=== PATIENT | female | born 1985 | race Caucasian/White ===

== ENCOUNTER → 2016-10-17 | Outpatient (CLI) | payer BC ==
[2016-10-19 10:56] LABS: HERPES SIMPLEX AB IGG-1 < 0.90 INDEX (< 0.90); HERPES SIMPLEX AB IGG-2 < 0.90 INDEX (< 0.90)
== END | disposition home or self-care (01) ==
LOC: C.LABMFLN 15:03
PROVIDERS: ATTEND Family Medicine
DX: Z20.2 Contact with and (suspected) exposure to infections with a predominantly sexual mode of transmission (principal)

== ENCOUNTER → 2016-11-07 | Outpatient (CLI) | payer BC ==
[2016-11-11 07:06] LABS: CHLAMYDIA TRACH RNA*** NOT DETECTED (NOT DETECTED); GC (NEIS GONORRHOEAE)RNA** NOT DETECTED (NOT DETECTED)
== END | disposition home or self-care (01) ==
LOC: C.LABMFLN 08:02
PROVIDERS: ATTEND Family Medicine
DX: Z00.00 Encounter for general adult medical examination without abnormal findings (principal); Z01.419 Encounter for gynecological examination (general) (routine) without abnormal findings

== ENCOUNTER → 2016-11-07 | Outpatient (CLI) | payer BC | END | disposition home or self-care (01) | LOC: C.PAPS 08:51 | PROVIDERS: ATTEND Family Medicine | DX: Z01.419 Encounter for gynecological examination (general) (routine) without abnormal findings (principal) ==

== ENCOUNTER → 2017-05-30 | Outpatient (CLI) | payer BC ==
[2017-05-30 17:58] LABS: BASO % 0.3 %; BASO ABS # 0.03 K/uL (0-0.2); EOS % 1.8 %; EOS ABS # 0.18 K/uL (0-0.5); HEMATOCRIT 40.2 % (37-47); HEMOGLOBIN 13.9 g/dL (12.0-16.0); IG# 0.02 K/uL (0.00-0.02); LYMPH % 41.9 %; LYMPH ABS # 4.14 K/uL (1.2-3.4); MEAN CELL VOLUME 92.2 fL (80-100); MEAN CORPUSCULAR HEMOGLOBIN 31.9 pg (25-34); MEAN CORPUSCULAR HGB CONC 34.6 g/dl (32-36); MEAN PLATELET VOLUME 10.8 fL (7.4-10.4); MONO % 6.6 %; MONO ABS # 0.65 K/uL (0.11-0.59); NEUT % 49.2 %; NEUT ABS # 4.86 K/uL (1.4-6.5); PLATELET COUNT 309 K/uL (130-400); RED CELL DISTRIBUTION WIDTH CV 12.8 % (11.5-14.5); RED CELL DISTRIBUTION WIDTH SD 43.5 fL (36.4-46.3); WHITE BLOOD COUNT 9.88 K/uL (4.8-10.8)
[2017-05-30 18:15] LABS: ALBUMIN 3.3 gm/dl (3.4-5.0); ALT/SGPT 25 U/L (12-78); AST/SGOT 17 U/L (15-37); BLOOD UREA NITROGEN 15 mg/dl (7-18); CALCIUM 8.8 mg/dl (8.5-10.1); CARBON DIOXIDE 27 mmol/L (21-32); CREATININE 0.82 mg/dl (0.60-1.20); GLUCOSE 77 mg/dl (70-99); SODIUM 135 mmol/L (136-145)
[2017-05-30 18:26] LABS: ALKALINE PHOSPHATASE 44 U/L (45-117); TOTAL PROTEIN 7.6 gm/dl (6.4-8.2)
== END | disposition home or self-care (01) ==
LOC: C.LABMFLN 15:31
PROVIDERS: ATTEND Family Medicine
DX: R00.2 Palpitations (principal)

== ENCOUNTER → 2017-12-21 | Outpatient (CLI) | payer BC ==
[2017-12-25 12:15] LABS: HERPES SIMPLEX AB IGG-1 < 0.90 INDEX (< 0.90); HERPES SIMPLEX AB IGG-2 < 0.90 INDEX (< 0.90)
== END | disposition home or self-care (01) ==
LOC: C.LABMFLN 11:15
PROVIDERS: ATTEND Family Medicine
DX: Z20.2 Contact with and (suspected) exposure to infections with a predominantly sexual mode of transmission (principal)

== ENCOUNTER 2021-07-22 07:40 | Inpatient (IN) ==
[2021-07-22] MEDS ORDERED: OXYTOCIN 30 UNITS/500 ML BAG IV PRN ×2 (08:10→09:55)
[2021-07-22 08:32] LABS: Hematocrit (blood only) 36.5 % (37-47); Hemoglobin 12.3 g/dL (12.0-16.0); Mean Corpuscular Hemoglobin 30.2 pg (25-34); Mean Corpuscular Hgb Conc 33.7 g/dL (32-36); Mean Corpuscular Volume 89.7 fL (80-100); Mean Platelet Volume 10.2 fL (7.4-10.4); Platelet Count 222 K/uL (130-400); RDW Coefficient of Variation 14.3 % (11.5-14.5); RDW Standard Deviation 46.6 fL (36.4-46.3); Red Blood Count 4.07 M/uL (4.2-5.4); White Blood Count 13.59 K/uL (4.8-10.8)
[2021-07-22 08:42] LABS: INR 0.9 (0.9-1.1); Partial Thromboplastin Ratio 0.9; Partial Thromboplastin Time 24.5 Seconds (21.0-31.0); Prothrombin Time 10.1 Seconds (9.0-12.0)
--- NOTE | 2021-07-22 09:05 | History & Physical Report ---
Date of Service July 22, 2021 Assessment & Plan (1) Encounter for induction of labor: Plan: 36-year-old primigravida w/ complicated by chronic hypertension, presenting to L&D at 30.6 WGA for IOL (reason) * GBS+, RI, Rh+: IV penicillin G, 3 mu every 4 hours. * Pulmonary embolism hxstopped heparin on Monday; plan to resume (10,000 units SQ x1 week, then Lovenox). Coag panel labs ordered: wnl. * Admit to L&D * NPO except sips and chips * Pitocin PRN * Pt. open to epidural * Maintenance IVF: Lactated Ringer's at 125 mL * Continuous electronic heart monitoring * Full Code * Anticipate Admission and Anticipated Discharge Date Admission Date: July 22, 2021 History of Present Illness Primary Care Provider: Diamond Aly PA-C Vidal is a 36 y/o female primigravida currently at 38.6 WGA with an OZIEL 07/30/2021 as determined by Ultrasound who is here for induction. Her was complicated by medical history of chronic hypertension, for which she is on medication, hypothyroidism, and blood clots (pulmonary embolism), for which she was also on Lovenox and then heparin (stopped 24 hours prior to scheduled induction, as per guidelines). + Contractions; + movement; no fluid loss; no bloody show. Had regular appointments with OB. Labs: 07/22/2021 Blood type: A+ Antibody screen: Negative H.3 Hct: 36.5% WBC: 13.59 Plt: 222 Rubella: Immune RPR: Nonreactive Gonorrhea: Not detected Chlamydia: Not detected HIV: Negative HbSAg: Negative GBS: Positive Other screens: cff-DNA: Declined CF: Negative SMA: Negative Allergies Allergy/AdvReac Type Severity Reaction Status Date / Time No Known Allergies Allergy Unknown Verified 07/21/21 09:13 Home Medications Medication Instructions Recorded Confirmed Type fluticasone propionate 50 1 sprays INTRANASAL DAILY PRN gm 12/27/18 07/21/21 History mcg/actuation nasal spray,suspension albuterol sulfate 90 mcg/actuation 2 puffs INH Q6H PRN #18 gm 09/11/19 07/21/21 Rx aerosol inhaler famotidine PO DAILY PRN 09/16/20 07/21/21 History labetalol 100 mg tablet 50 mg PO BID tab 09/16/20 07/21/21 History prenat.vits,tin,moz-ydkm-niiba 1 tab PO DAILY 12/04/20 07/21/21 History lansoprazole 15 mg capsule,delayed 15 mg PO DAILY #90 cap 02/18/21 07/21/21 Rx release (Prevacid 24Hr) acetone (urine) test (Ketone Urine #50 ea 03/15/21 07/21/21 Rx Test) blood sugar diagnostic (OneTouch #150 ea 03/15/21 07/21/21 Rx Verio test strips) blood-glucose meter (OneTouch #1 ea 03/15/21 07/21/21 Rx Verio Flex meter) lancets 33 gauge (OneTouch Delica #150 ea 03/15/21 07/21/21 Rx Plus Lancet) aspirin 81 mg tablet,delayed 81 mg PO DAILY 05/21/21 07/21/21 History release (Adult Aspirin Regimen) levothyroxine 25 mcg capsule 25 mcg PO DAILY 06/04/21 07/21/21 History Patient History Medical History Abnormal CT of brain Acid reflux disease Antiphospholipid syndrome Anxiety Atypical chest pain Chronic sinusitis Deviated septum History of chlamydia infection Hypertension OCD (obsessive compulsive disorder) Pulmonary embolism Vulvar lesion Surgical History Chorioretinal scar after retinal detachment surgery H/O arthroscopic knee surgery History of mandibular surgery S/P sinus surgery Family History Mother Asthma Father Hypertension Grandfather (Maternal) Liver cancer Viral hepatitis C Grandmother (Paternal) Myocardial infarction Denies family history of Ovarian cancer Prostate cancer Breast cancer Colorectal cancer Social History (Updated 12/04/20 @ 08:43 by Maddie Mascorro) Smoking Status: Never smoker Second Hand Exposure: No; Do You Dip or Chew Tobacco: No; Tobacco Cessation Education Requested by Patient: No Hx Alcohol Use: No Hx Substance Use: No Preferred Language: Turkish Communication Ability: Effective Building Carpenter Required: No Beliefs That Will Affect Care: None marital status: marital status details: Levar (39) [phone] Current Living Situation: Spouse Current Living Situation Comment: lives with spouse, 1 dog. current occupational status: employed current occupation: [employer]- Other Information That Helps Us Care for You: No Feels Safe at Home: Yes Safety Concerns: Feels Safe At This Time Assistive Devices: None Review of Systems All systems reviewed & are unremarkable except as noted in HPI & below Physical Exam Physical Exam: General: Alert, oriented. No acute distress. Cardiac: Regular rate and rhythm, no murmurs/rubs/gallops. Respiratory: Clear to auscultation bilaterally a/p, no wheezes/rales/rhonchi. No increased work of breathing. Symmetrical chest rise. No respiratory distress. Pelvic: Dilation 1 cm; Effacement 90%; Station -[address] Wyatt Lower Extremities: No lower extremity edema or swelling. No deep calf pain. Moses's negative bilaterally Baseline: 110 bpm Variability: moderate Accelerations:3+ per 20 minutes Decelerations: none Results & Data ([facility]) Vital Signs (Past 12 Hours) Vital Signs Temp Pulse Resp BP 07/22/21 08:12 86 137/84 07/22/21 08:10 36.6 C 22 07/22/21 07:51 103 H 148/85 H Supervising Physician Co-Signing Physician Notes Resident Physician Supervision Note: I interviewed and examined the patient. Discussed with Dr. Kerns and agree with findings and plan as documented in the note. Any exceptions or clarifications are listed here: 36yo @ 38 6/, IOL for cHTN. Also has GDMA1, h/o PE, GBS+. Last dose of heparin Monday night. Coags ordered with admission labs. Laboy bulb placed, tolerated well and will start pitocin. OK for epidural when she desires. Documented By: Ritu Wyatt DO Resident Activity Tracking Resident Involvement: Resident Care Provided Care Provided: OB Delivery
[2021-07-22] MEDS ORDERED: PENICILLIN POTASSIUM MU IV ONE (09:43)
[2021-07-22] MEDS ORDERED: DEXTROSE IV ONE (09:43)
[2021-07-22] MEDS ORDERED: PENICILLIN G POTASSIUM 2.5 MU in DEXTROSE 5% 100 ML IV SCH (09:45)
[2021-07-22] MEDS: LACTATED RINGER'S 1,000 ML IV PRN ×4 (09:45→20:57)
[2021-07-22] MEDS ORDERED: PENICILLIN G POTASSIUM 6 MU in DEXTROSE 5% 250 ML IV STA (09:55)
[2021-07-22] MEDS ORDERED: OXYTOCIN 20 UNITS in LACTATED RINGER'S 1,000 ML IV SCH (10:00)
[2021-07-22] MEDS ORDERED: BUTORPHANOL TARTRATE 1 MG/ML VIAL IV PRN (10:28)
[2021-07-22] MEDS ORDERED: BUPIVACAINE 0.25% 30 ML VIAL ONE (14:03)
[2021-07-22] MEDS ORDERED: SODIUM CHLORIDE 0.9% INJ 10 ML VIAL ONE (14:03)
[2021-07-22] MEDS ORDERED: ePHEDrine sulfate 50 MG/ML AMP ONE (14:03)
[2021-07-22] MEDS ORDERED: fentaNYL citrate 100 MCG/2 ML VIAL ONE ×2 (14:03→23:33)
[2021-07-22] MEDS ORDERED: fentaNYL 2MCG/ML ROPIVACAINE 1.25MG/ML 100 ML BAG EPI ONE (14:04)
[2021-07-22] MEDS: PENICILLIN G POTASSIUM 3 MU in DEXTROSE 5% 100 ML IV PRN ×2 (14:53→19:05)
--- NOTE | 2021-07-22 14:58 | Anesthesiology Consultation ---
Date of Service July 22, 2021 Assessment & Plan Chart Review Chart Review: Acceptable Risk for Labor Epidural Consults Requested none History Height/Weight Height: 5 ft 4 in Weight: 90.265 kg Allergies Allergy/AdvReac Type Severity Reaction Status Date / Time No Known Allergies Allergy Unknown Verified 07/21/21 09:13 Medications Home Medications Medication Instructions Recorded Confirmed Last Taken fluticasone propionate 50 1 sprays INTRANASAL DAILY PRN gm 12/27/18 07/21/21 Unknown mcg/actuation nasal spray,suspension albuterol sulfate 90 mcg/actuation 2 puffs INH Q6H PRN #18 gm 09/11/19 07/21/21 Unknown aerosol inhaler famotidine PO DAILY PRN 09/16/20 07/21/21 Unknown labetalol 100 mg tablet 50 mg PO BID tab 09/16/20 07/21/21 Unknown prenat.vits,tin,rvl-ekgr-vxbia 1 tab PO DAILY 12/04/20 07/21/21 Unknown lansoprazole 15 mg capsule,delayed 15 mg PO DAILY #90 cap 02/18/21 07/21/21 Unknown release (Prevacid 24Hr) acetone (urine) test (Ketone Urine #50 ea 03/15/21 07/21/21 Unknown Test) blood sugar diagnostic (OneTouch #150 ea 03/15/21 07/21/21 Unknown Verio test strips) blood-glucose meter (OneTouch #1 ea 03/15/21 07/21/21 Unknown Verio Flex meter) lancets 33 gauge (OneTouch Delica #150 ea 03/15/21 07/21/21 Unknown Plus Lancet) aspirin 81 mg tablet,delayed 81 mg PO DAILY 05/21/21 07/21/21 Unknown release (Adult Aspirin Regimen) levothyroxine 25 mcg capsule 25 mcg PO DAILY 06/04/21 07/21/21 Unknown Active Medications Generic Name Dose Route Start Last Admin Trade Name Freq PRN Reason Stop Dose Admin Butorphanol Tartrate 1 mg 07/22/21 10:28 07/22/21 11:09 Butorphanol Tartrate 1 Mg/Ml Vial IV 08/21/21 10:27 1 mg Q2HWA PRN Administration Pain Lactated Ringer's 1,000 mls @ 125 mls/hr 07/22/21 08:10 07/22/21 13:47 Lr IV 07/24/21 08:09 999 mls/hr .Q8H PRN Administration L&D Protocol Protocol Oxytocin 30 units in 500 mls @ 11 mls/hr 07/22/21 09:55 07/22/21 14:00 Pitocin IV 08/21/21 09:54 0.66 units/hr .Q24H PRN 11 mls/hr Labor Induction/Augmentation Titration Protocol 0.66 UNITS/HR Penicillin G Potassium 3 mu/ 106 mls @ 100 mls/hr 07/22/21 14:00 07/22/21 14:53 Dextrose IV 08/01/21 13:59 100 mls/hr Q4H PRN Administration GBS(+) Until Delivery Past Medical History Medical History (Updated 07/22/21 @ 13:29 by Yony Kerns MD) Abnormal CT of brain Acid reflux disease Antiphospholipid syndrome Anxiety Atypical chest pain Chronic sinusitis Deviated septum History of chlamydia infection Hypertension OCD (obsessive compulsive disorder) Pulmonary embolism Vulvar lesion Past Family History Family History Mother Asthma Father Hypertension Grandfather (Maternal) Liver cancer Viral hepatitis C Grandmother (Paternal) Myocardial infarction Denies family history of Ovarian cancer Prostate cancer Breast cancer Colorectal cancer Past Surgical History Surgical History (Updated 09/12/19 @ 08:25 by Diamond Mobley MD) Chorioretinal scar after retinal detachment surgery H/O arthroscopic knee surgery History of mandibular surgery S/P sinus surgery Social History Smoking Status: Never smoker Do You Dip or Chew Tobacco: No Hx Alcohol Use: No Hx Substance Use: No substance use type: does not use Physical Exam Vital Signs Last Vital Signs Temp 36.4 C L 07/22/21 12:01 Pulse 70 07/22/21 14:56 Resp 18 07/22/21 12:01 BP 140/81 07/22/21 14:55 Pulse Ox 99 07/22/21 14:56 Testing Laboratory Results 07/22/21 08:19 PT 10.1 Seconds (9.0-12.0) 07/22/21 08:23 INR 0.9 (0.9-1.1) 07/22/21 08:23 APTT 24.5 Seconds (21.0-31.0) 07/22/21 08:23 07/22/21 09:03 POC Glucose 85
[2021-07-22] MEDS ORDERED: ePHEDrine sulfate 50 MG/ML AMP IV PRN (15:00)
[2021-07-22] MEDS ORDERED: NALOXONE HCL 0.4 MG/1 ML VIAL/CARP IV PRN (15:00)
[2021-07-22] MEDS ORDERED: NALBUPHINE HCL INJ 10 MG/ML AMP IV PRN (15:00)
[2021-07-22] MEDS ORDERED: NALOXONE HCL 1 MG in SODIUM CHLORIDE 0.9% 1000ML 1,000 ML IV PRN (15:00)
[2021-07-22] MEDS ORDERED: fentaNYL 2MCG/ML ROPIVACAINE 1.25MG/ML 100 ML BAG EPI PRN (15:00)
[2021-07-22] MEDS ORDERED: diphenhydrAMINE 50 MG/ML VIAL IV PRN (15:00)
--- NOTE | 2021-07-22 15:39 | Labor Progress Brief Note ---
Date of Service July 22, 2021 Subjective Comfortable with epidural. FHT Cat 1 [place] Q 2-3 SVE 5/80/-3 AROM clear fluid. Continue labor. Assessment & Plan Admission and Anticipated Discharge Date Admission Date: July 22, 2021 Results & Data ([facility]) Vital Signs (Past 12 Hours) Vital Signs Temp Pulse Resp BP Pulse Ox 07/22/21 15:36 95 H 100 07/22/21 15:31 80 100 07/22/21 15:26 78 133/75 100 07/22/21 15:21 83 100 07/22/21 15:16 74 100 07/22/21 15:11 75 100 07/22/21 15:10 70 135/77 07/22/21 15:06 85 100 07/22/21 15:01 67 99 07/22/21 14:56 70 99 07/22/21 14:55 91 H 140/81 07/22/21 14:51 73 99 07/22/21 14:50 76 139/83 07/22/21 14:48 77 138/87 07/22/21 14:46 36.4 C L 79 142/87 H 99 07/22/21 14:44 82 146/92 H 07/22/21 14:42 81 143/92 H 07/22/21 14:41 82 99 07/22/21 14:40 74 164/93 H 07/22/21 14:36 78 100 07/22/21 14:35 100 H 165/88 H 07/22/21 14:32 72 160/87 H 07/22/21 14:31 74 100 07/22/21 14:26 80 158/88 H 100 07/22/21 14:22 66 158/82 H 07/22/21 14:21 69 100 07/22/21 14:16 69 178/85 H 100 07/22/21 14:11 77 139/81 07/22/21 13:01 69 133/82 07/22/21 12:01 36.4 C L 65 18 135/80 07/22/21 11:16 70 132/75 07/22/21 10:24 81 134/84 07/22/21 09:59 78 137/86 07/22/21 09:06 87 148/90 H 07/22/21 08:12 86 137/84 07/22/21 08:10 36.6 C 07/22/21 07:51 103 H 148/85 H Coding Level of Care Code None
[2021-07-22] MEDS ORDERED: ONDANSETRON INJ 2 MG/ML 2 ML VIAL IV PRN (18:32)
--- NOTE | 2021-07-22 19:47 | Labor Progress Brief Note ---
Date of Service July 22, 2021 Subjective Comfortable with epidural. FHT Cat 1 with early decels [place] Q 2-3 min SVE 7cm/0 station per RN exam Assessment & Plan Admission and Anticipated Discharge Date Admission Date: July 22, 2021 Results & Data ([facility]) Vital Signs (Past 12 Hours) Vital Signs Temp Pulse Resp BP Pulse Ox 07/22/21 19:41 59 L 100 07/22/21 19:40 62 140/67 07/22/21 19:36 122 H 99 07/22/21 19:31 75 100 07/22/21 19:30 18 07/22/21 19:26 88 91 07/22/21 19:25 71 130/69 07/22/21 19:21 81 100 07/22/21 19:20 101 H 92 07/22/21 19:16 96 H 100 07/22/21 19:11 85 100 07/22/21 19:10 36.8 C 77 18 129/67 07/22/21 19:06 83 100 07/22/21 19:01 73 100 07/22/21 19:00 18 07/22/21 18:56 89 132/71 99 07/22/21 18:51 66 100 07/22/21 18:46 80 100 07/22/21 18:41 80 131/67 100 07/22/21 18:36 80 100 07/22/21 18:31 79 100 07/22/21 18:26 83 100 07/22/21 18:25 114 H 117/73 07/22/21 18:21 98 H 100 07/22/21 18:16 102 H 100 07/22/21 18:11 67 142/77 H 100 07/22/21 18:06 62 100 07/22/21 18:01 67 100 07/22/21 17:56 82 100 07/22/21 17:51 66 100 07/22/21 17:46 75 100 07/22/21 17:41 69 100 07/22/21 17:40 82 135/77 07/22/21 17:36 83 100 07/22/21 17:31 89 100 07/22/21 17:26 83 100 07/22/21 17:25 88 116/77 07/22/21 17:21 63 100 07/22/21 17:16 83 100 07/22/21 17:11 65 112/85 100 07/22/21 17:06 96 H 100 07/22/21 17:01 115 H 100 07/22/21 17:00 18 07/22/21 16:56 67 100 07/22/21 16:55 59 L 146/70 H 07/22/21 16:51 65 100 07/22/21 16:46 63 100 07/22/21 16:42 60 134/76 07/22/21 16:41 59 L 100 07/22/21 16:36 71 100 07/22/21 16:31 70 100 07/22/21 16:26 63 100 07/22/21 16:25 64 132/73 07/22/21 16:21 67 100 07/22/21 16:16 60 100 07/22/21 16:11 61 144/79 H 100 07/22/21 16:06 63 100 07/22/21 16:01 59 L 100 07/22/21 16:00 18 07/22/21 15:56 65 100 07/22/21 15:55 58 L 134/69 07/22/21 15:51 61 100 07/22/21 15:46 75 100 07/22/21 15:42 36.7 C 18 07/22/21 15:41 76 100 07/22/21 15:40 78 130/84 07/22/21 15:36 95 H 100 07/22/21 15:31 80 100 07/22/21 15:30 18 07/22/21 15:26 78 133/75 100 07/22/21 15:21 83 100 07/22/21 15:16 74 100 07/22/21 15:11 75 100 07/22/21 15:10 70 135/77 07/22/21 15:06 85 100 07/22/21 15:01 67 99 07/22/21 14:56 70 99 07/22/21 14:55 91 H 140/81 07/22/21 14:51 73 99 07/22/21 14:50 76 139/83 07/22/21 14:48 77 138/87 07/22/21 14:46 36.4 C L 79 142/87 H 99 07/22/21 14:44 82 146/92 H 07/22/21 14:42 81 143/92 H 07/22/21 14:41 82 99 07/22/21 14:40 74 164/93 H 07/22/21 14:36 78 100 07/22/21 14:35 100 H 165/88 H 07/22/21 14:32 72 160/87 H 07/22/21 14:31 74 100 07/22/21 14:26 80 158/88 H 100 07/22/21 14:22 66 158/82 H 07/22/21 14:21 69 100 07/22/21 14:16 69 178/85 H 100 07/22/21 14:11 77 139/81 07/22/21 13:01 69 133/82 07/22/21 12:01 36.4 C L 65 18 135/80 07/22/21 11:16 70 132/75 07/22/21 10:24 81 134/84 07/22/21 09:59 78 137/86 07/22/21 09:06 87 148/90 H 07/22/21 08:12 86 137/84 07/22/21 08:10 36.6 C 22 07/22/21 07:51 103 H 148/85 H Coding Level of Care Code None
[2021-07-22] MEDS: LABETALOL HCL 100 MG TAB PO SCH (20:56)
--- NOTE | 2021-07-22 21:22 | Labor Progress Brief Note ---
Date of Service July 22, 2021 Subjective FHT with Cat 3 tracing - late decelerations, not responsive to repositioning. Will stop pitocin, give fluids bolus and allow baby to recover. Assessment & Plan Admission and Anticipated Discharge Date Admission Date: July 22, 2021 Results & Data ([facility]) Vital Signs (Past 12 Hours) Vital Signs Temp Pulse Resp BP Pulse Ox 07/22/21 21:16 78 97 07/22/21 21:11 82 127/78 99 07/22/21 21:06 82 100 07/22/21 21:01 94 H 100 07/22/21 21:00 36.7 C 18 07/22/21 20:56 68 100 07/22/21 20:55 66 120/62 07/22/21 20:51 69 99 07/22/21 20:46 84 99 07/22/21 20:41 74 99 07/22/21 20:40 75 133/83 07/22/21 20:36 80 99 07/22/21 20:31 83 99 07/22/21 20:30 20 07/22/21 20:26 72 98 07/22/21 20:25 72 134/88 07/22/21 20:21 84 100 07/22/21 20:16 89 100 07/22/21 20:11 72 141/78 H 100 07/22/21 20:06 70 99 07/22/21 20:01 77 100 07/22/21 20:00 20 07/22/21 19:56 100 H 100 07/22/21 19:55 69 133/79 07/22/21 19:51 71 100 07/22/21 19:46 74 99 07/22/21 19:41 59 L 100 07/22/21 19:40 62 140/67 07/22/21 19:36 122 H 99 07/22/21 19:31 75 100 07/22/21 19:30 18 07/22/21 19:26 88 91 07/22/21 19:25 71 130/69 07/22/21 19:21 81 100 07/22/21 19:20 101 H 92 07/22/21 19:16 96 H 100 07/22/21 19:11 85 100 07/22/21 19:10 36.8 C 77 18 129/67 07/22/21 19:06 83 100 07/22/21 19:01 73 100 07/22/21 19:00 18 07/22/21 18:56 89 132/71 99 07/22/21 18:51 66 100 07/22/21 18:46 80 100 07/22/21 18:41 80 131/67 100 07/22/21 18:36 80 100 07/22/21 18:31 79 100 07/22/21 18:26 83 100 07/22/21 18:25 114 H 117/73 07/22/21 18:21 98 H 100 07/22/21 18:16 102 H 100 07/22/21 18:11 67 142/77 H 100 07/22/21 18:06 62 100 07/22/21 18:01 67 100 07/22/21 17:56 82 100 07/22/21 17:51 66 100 07/22/21 17:46 75 100 07/22/21 17:41 69 100 07/22/21 17:40 82 135/77 07/22/21 17:36 83 100 07/22/21 17:31 89 100 07/22/21 17:26 83 100 07/22/21 17:25 88 116/77 07/22/21 17:21 63 100 07/22/21 17:16 83 100 07/22/21 17:11 65 112/85 100 07/22/21 17:06 96 H 100 07/22/21 17:01 115 H 100 07/22/21 17:00 18 07/22/21 16:56 67 100 07/22/21 16:55 59 L 146/70 H 07/22/21 16:51 65 100 22 16:46 63 100 22 16:42 60 134/76 22 16:41 59 L 100 22 16:36 71 100 22 16:31 70 100 07/22/21 16:26 63 100 22 16:25 64 132/73 22 16:21 67 100 22 16:16 60 100 07/22/21 16:11 61 144/79 H 100 1722 16:06 63 100 07/22/21 16:01 59 L 100 07/22/21 16:00 18 07/22/21 15:56 65 100 07/22/21 15:55 58 L 134/69 07/22/21 15:51 61 100 07/22/21 15:46 75 100 07/22/21 15:42 36.7 C 18 07/22/21 15:41 76 100 07/22/21 15:40 78 130/84 07/22/21 15:36 95 H 100 07/22/21 15:31 80 100 07/22/21 15:30 18 07/22/21 15:26 78 133/75 100 07/22/21 15:21 83 100 07/22/21 15:16 74 100 07/22/21 15:11 75 100 07/22/21 15:10 70 135/77 07/22/21 15:06 85 100 07/22/21 15:01 67 99 07/22/21 14:56 70 99 07/22/21 14:55 91 H 140/81 07/22/21 14:51 73 99 07/22/21 14:50 76 139/83 07/22/21 14:48 77 138/87 07/22/21 14:46 36.4 C L 79 142/87 H 99 07/22/21 14:44 82 146/92 H 07/22/21 14:42 81 143/92 H 07/22/21 14:41 82 99 07/22/21 14:40 74 164/93 H 07/22/21 14:36 78 100 07/22/21 14:35 100 H 165/88 H 07/22/21 14:32 72 160/87 H 07/22/21 14:31 74 100 07/22/21 14:26 80 158/88 H 100 07/22/21 14:22 66 158/82 H 07/22/21 14:21 69 100 07/22/21 14:16 69 178/85 H 100 07/22/21 14:11 77 139/81 07/22/21 13:01 69 133/82 07/22/21 12:01 36.4 C L 65 18 135/80 07/22/21 11:16 70 132/75 07/22/21 10:24 81 134/84 07/22/21 09:59 78 137/86 Coding Level of Care Code None
--- NOTE | 2021-07-22 22:51 | Labor Progress Brief Note ---
Date of Service July 22, 2021 Subjective After stopping pitocin for Cat 3 tracing, FHT have improved to cat 1 with accels. Restarted pitocin. Discussed with patient that we will need to closely monitor - if we begin to see worsening FHT again, may need to deliver by . Assessment & Plan Admission and Anticipated Discharge Date Admission Date: July 22, 2021 Results & Data ([facility]) Vital Signs (Past 12 Hours) Vital Signs Temp Pulse Resp BP Pulse Ox 07/22/21 22:46 71 98 07/22/21 22:41 69 99 07/22/21 22:40 73 126/60 07/22/21 22:36 70 98 07/22/21 22:31 69 98 07/22/21 22:30 18 07/22/21 22:26 73 99 07/22/21 22:25 68 129/57 L 07/22/21 22:21 70 99 07/22/21 22:16 69 98 07/22/21 22:11 77 99 07/22/21 22:10 76 135/64 07/22/21 22:06 73 100 07/22/21 22:01 81 100 07/22/21 22:00 18 07/22/21 21:56 69 100 07/22/21 21:55 68 121/60 07/22/21 21:51 67 100 07/22/21 21:46 68 100 07/22/21 21:41 68 100 07/22/21 21:40 67 124/57 L 07/22/21 21:36 79 100 07/22/21 21:31 82 99 07/22/21 21:30 20 07/22/21 21:26 76 139/75 99 07/22/21 21:21 84 99 07/22/21 21:16 78 97 07/22/21 21:11 82 127/78 99 07/22/21 21:06 82 100 07/22/21 21:01 94 H 100 07/22/21 21:00 36.7 C 18 07/22/21 20:56 68 100 07/22/21 20:55 66 120/62 07/22/21 20:51 69 99 07/22/21 20:46 84 99 07/22/21 20:41 74 99 07/22/21 20:40 75 133/83 07/22/21 20:36 80 99 07/22/21 20:31 83 99 07/22/21 20:30 20 07/22/21 20:26 72 98 07/22/21 20:25 72 134/88 07/22/21 20:21 84 100 07/22/21 20:16 89 100 07/22/21 20:11 72 141/78 H 100 07/22/21 20:06 70 99 07/22/21 20:01 77 100 07/22/21 20:00 20 07/22/21 19:56 100 H 100 07/22/21 19:55 69 133/79 07/22/21 19:51 71 100 07/22/21 19:46 74 99 07/22/21 19:41 59 L 100 07/22/21 19:40 62 140/67 07/22/21 19:36 122 H 99 07/22/21 19:31 75 100 07/22/21 19:30 18 07/22/21 19:26 88 91 07/22/21 19:25 71 130/69 07/22/21 19:21 81 100 07/22/21 19:20 101 H 92 07/22/21 19:16 96 H 100 07/22/21 19:11 85 100 07/22/21 19:10 36.8 C 77 18 129/67 07/22/21 19:06 83 100 07/22/21 19:01 73 100 07/22/21 19:00 18 07/22/21 18:56 89 132/71 99 07/22/21 18:51 66 100 07/22/21 18:46 80 100 07/22/21 18:41 80 131/67 100 07/22/21 18:36 80 100 07/22/21 18:31 79 100 07/22/21 18:26 83 100 07/22/21 18:25 114 H 117/73 07/22/21 18:21 98 H 100 07/22/21 18:16 102 H 100 07/22/21 18:11 67 142/77 H 100 07/22/21 18:06 62 100 07/22/21 18:01 67 100 07/22/21 17:56 82 100 07/22/21 17:51 66 100 07/22/21 17:46 75 100 07/22/21 17:41 69 100 07/22/21 17:40 82 135/77 07/22/21 17:36 83 100 07/22/21 17:31 89 100 07/22/21 17:26 83 100 07/22/21 17:25 88 116/77 07/22/21 17:21 63 100 07/22/21 17:16 83 100 07/22/21 17:11 65 112/85 100 07/22/21 17:06 96 H 100 07/22/21 17:01 115 H 100 07/22/21 17:00 18 07/22/21 16:56 67 100 07/22/21 16:55 59 L 146/70 H 07/22/21 16:51 65 100 07/22/21 16:46 63 100 07/22/21 16:42 60 134/76 07/22/21 16:41 59 L 100 07/22/21 16:36 71 100 07/22/21 16:31 70 100 07/22/21 16:26 63 100 07/22/21 16:25 64 132/73 07/22/21 16:21 67 100 07/22/21 16:16 60 100 07/22/21 16:11 61 144/79 H 100 07/22/21 16:06 63 100 07/22/21 16:01 59 L 100 07/22/21 16:00 18 07/22/21 15:56 65 100 07/22/21 15:55 58 L 134/69 07/22/21 15:51 61 100 07/22/21 15:46 75 100 07/22/21 15:42 36.7 C 18 07/22/21 15:41 76 100 07/22/21 15:40 78 130/84 07/22/21 15:36 95 H 100 07/22/21 15:31 80 100 07/22/21 15:30 18 07/22/21 15:26 78 133/75 100 07/22/21 15:21 83 100 07/22/21 15:16 74 100 07/22/21 15:11 75 100 07/22/21 15:10 70 135/77 07/22/21 15:06 85 100 07/22/21 15:01 67 99 07/22/21 14:56 70 99 07/22/21 14:55 91 H 140/81 07/22/21 14:51 73 99 03/17/22 14:50 76 139/83 07/22/21 14:48 77 138/87 07/22/21 14:46 36.4 C L 79 142/87 H 99 07/22/21 14:44 82 146/92 H 07/22/21 14:42 81 143/92 H 07/22/21 14:41 82 99 07/22/21 14:40 74 164/93 H 07/22/21 14:36 78 100 07/22/21 14:35 100 H 165/88 H 07/22/21 14:32 72 160/87 H 07/22/21 14:31 74 100 07/22/21 14:26 80 158/88 H 100 07/22/21 14:22 66 158/82 H 07/22/21 14:21 69 100 07/22/21 14:16 69 178/85 H 100 07/22/21 14:11 77 139/81 07/22/21 13:01 69 133/82 07/22/21 12:01 36.4 C L 65 18 135/80 07/22/21 11:16 70 132/75 Coding Level of Care Code None
[2021-07-22] MEDS ORDERED: CITRIC ACID/SODIUM CITRATE 15 ML UDC PO STA (23:20)
[2021-07-22] MEDS ORDERED: ceFAZolin 2000MG 2,000 MG/15 ML SYR IV STA (23:20)
--- NOTE | 2021-07-22 23:21 | History & Physical Bridge Note ---
Date of Service July 22, 2021 History & Physical Bridge Note I have examined the patient, reviewed the History & Physical and in the interval since the performance of the History & Physical I have noted the following changes of clinical significance: Patient restarted pitocin, pit at 3. She is having irreg ctx, however with >50% of ctx she is having late decelerations. Cervix exam is still 7-8cm, 0 station. Discussed with patient that would recommend delivery by due to the nonreassuring heart tracing. She is agreeable. Informed consent discussed.
[2021-07-22] MEDS ORDERED: LACTATED RINGER'S 1,000 ML IV SCH (23:30)
[2021-07-23] MEDS ORDERED: OXYTOCIN 10 UNITS/ML 10ML VIAL ONE (00:11)
[2021-07-23] MEDS ORDERED: LIDOCAINE 2%/EPINEPHRINE 1:200,000 20 ML SDV ONE (00:11)
[2021-07-23] MEDS ORDERED: MoRPHine SULFATE PF 1 MG/ML 10 ML AMP/VIAL ONE (00:22)
[2021-07-23] MEDS ORDERED: ONDANSETRON INJ 2 MG/ML 2 ML VIAL ONE (00:29)
[2021-07-23] MEDS ORDERED: HYDROmorphone INJ 0.5 MG/0.5 ML SYR IV PRN (00:40)
[2021-07-23] MEDS ORDERED: PROMETHAZINE HCL 12.5 MG in SODIUM CHLORIDE 0.9% 50 ML IV PRN (00:40)
[2021-07-23] MEDS ORDERED: METOCLOPRAMIDE HCL 10 MG in SODIUM CHLORIDE 0.9% 50 ML IV PRN (00:40)
[2021-07-23] MEDS ORDERED: ePHEDrine sulfate 50 MG/ML AMP IV PRN (00:40)
[2021-07-23] MEDS ORDERED: NALOXONE HCL 0.4 MG/1 ML VIAL/CARP IV PRN (00:40)
[2021-07-23] MEDS ORDERED: ONDANSETRON INJ 2 MG/ML 2 ML VIAL IV PRN ×2 (00:40→18:40)
[2021-07-23] MEDS ORDERED: NALOXONE HCL 0.08 MG in SYRINGE 1.8 ML IV PRN (00:40)
[2021-07-23] MEDS ORDERED: NALOXONE HCL 1 MG in SODIUM CHLORIDE 0.9% 1000ML 1,000 ML IV PRN (00:40)
[2021-07-23] MEDS ORDERED: MoRPHine SULFATE PF 1 MG/ML 10 ML AMP/VIAL INT SPINAL ONE (00:40)
[2021-07-23] MEDS ORDERED: LACTATED RINGER'S 500 ML IV PRN (00:40)
[2021-07-23] MEDS ORDERED: HYDROmorphone INJ 2 MG/ML SYR/VIAL IV PRN (00:43)
[2021-07-23] MEDS ORDERED: KETOROLAC 30 MG/ML VIAL IV PRN ×2 (00:43→18:40)
[2021-07-23] MEDS ORDERED: ACETAMINOPHEN 1,000 MG/100 ML VIAL IV STA (00:43)
[2021-07-23] MEDS ORDERED: MoRPHine SULFATE 10 MG/ML CARP/VIAL IV PRN (00:43)
[2021-07-23] MEDS ORDERED: MEPERIDINE HCL 25 MG/ML CARP/VIAL IV PRN (00:43)
[2021-07-23] MEDS ORDERED: SODIUM CHLORIDE 0.9% 1000ML 1,000 ML IV SCH (00:45)
[2021-07-23] MEDS ORDERED: DC INTRASPINAL MORPHINE SCH (00:45)
[2021-07-23] MEDS ORDERED: NO NARCOTICS OR SEDATIVES SCH (00:45)
[2021-07-23] MEDS ORDERED: PHENYLEPHRINE 100MCG/ML 5ML SYR ONE (00:47)
[2021-07-23] MEDS ORDERED: fentaNYL citrate 100 MCG/2 ML VIAL ONE (00:50)
--- NOTE | 2021-07-23 01:29 | Anesthesia Procedure Note ---
Date of Service July 23, 2021 Anesthesia Post Epidural Note Vital Signs Vital Signs: Temp Pulse Resp BP Pulse Ox 36.9 C 86 18 133/77 99 07/22/21 23:05 07/23/21 01:24 07/22/21 23:30 07/23/21 01:24 07/22/21 23:21 Pain Intensity Anterior Abdomen: Pain Intensity: 0 Notes Mental Status: alert / awake / arousable Nausea / Vomiting: adequately controlled Pain: adequately controlled Airway Patency, RR, SpO2: stable & adequate BP & HR: stable & adequate Hydration State: stable & adequate Neuraxial Anesthesia: was administered and sensory block is resolving Anesthetic Complications: no major complications apparent and Pt Satisfied with anesthetic care Epidural: Removed without complications and With tip intact
[2021-07-23] MEDS ORDERED: HYDROCORTISONE ACETATE 25 MG SUPP PR PRN (01:32)
[2021-07-23] MEDS ORDERED: MAGNESIUM HYDROXIDE SUSP 30 ML UDC PO PRN (01:32)
[2021-07-23] MEDS ORDERED: DIPHTHERIA/TETANUS/PERTUSSIS 0.5 ML SYR/VIAL IM ONE (01:32)
[2021-07-23] MEDS ORDERED: BENZOCAINE 20% AER SPR 82.5 GM CAN EXT PRN (01:32)
[2021-07-23] MEDS ORDERED: SENNA 8.6 MG TAB PO PRN (01:32)
[2021-07-23] MEDS ORDERED: IBUPROFEN 600 MG TAB PO PRN (01:32)
[2021-07-23] MEDS: KETOROLAC 30 MG/ML VIAL IV PRN ×2 (01:34→11:52)
--- NOTE | 2021-07-23 01:37 | Operative Report ---
PG Post Operative Report Pre & Post Diagnosis Operation Date: 07/22/21 23:15 Pre-Op Diagnosis: nonreassuring heart tracing Post-Op Diagnosis: nonreassuring heart tracing I identified the patient and participated in the time-out.: Yes Procedure Operation Date: 07/22/21 23:15 Actual Procedures Primary low transverse Section in [facility] @ 0016 - Ritu Wyatt DO Surgeon Ritu Wyatt, Infectious Waste Technician Irineo Robb RN Estimated Blood Loss 600 Findings Consistent with Post-Op Diagnosis Normal uterus, tubes, ovaries. Viable male , Apgars 8/8. Weight pending, please see nursery report. Specimens placenta, cord blood, cord gas Drains alex pink tinge yellow - was pink tinged prior to start of case Anesthesia Type Labor Epidural Complications none Disposition Accompanied Patient To Recovery: No Disposition: L&D Indications 36yo @ 39 0/7, undergoing IOL for cHTN with pitocin. Began to experience l ate decelerations, initially responsive to resuscitative measures, however then recurrent late decels returned as soon as pitocin was restarted. At this point, cervix still 7cm and therefore I recommended delivery via section. Description of Procedure The patient was seen in her labor and delivery room, risks benefits and alternatives to surgery were reviewed. Informed consent obtained. Questions were answered. She was taken to the operating room, epidural anesthesia was redosed. She was then prepared and draped in the usual sterile fashion in the supine position with a leftward tilt. Timeout was confirmed. A Pfannenstiel skin incision was made with a scalpel, and carried through to the underlying layer of fascia. Fascia was nicked at midline, and this incision was extended bilaterally. The superior aspect of the fascial incision was grasped with Christine clamps x2, elevated off the underlying rectus abdominis muscles, and dissected sharply and bluntly. In similar fashion, the inferior aspect of the fascial incision was dissected. The rectus abdominis muscles were , and the peritoneum was entered bluntly digitally. This was extended bilaterally. The bladder flap was taken down carefully using Metzenbaum scissors. Using a new scalpel, a low transverse uterine incision was created. Clear amniotic fluid noted. The infant was delivered from a cephalic presentation. The head delivered, followed by shoulders and body. Nuchal cord x 1 reduced. Spontaneous cry on the field. The cord was doubly clamped and cut, and the was handed off to the waiting professor of english. A segment was retained for cord gases. Cord blood was obtained. The placenta was delivered spontaneously intact. The uterus was e xteriorized, and cleared of all clots and debris. The hysterotomy incision was reapproximated using 0 Vicryl in a running locked stitch. A second layer of the same suture was used to imbricate the incision. Posterior uterus was evaluated and normal. The uterus was returned to the abdomen, and gutters were cleared of clots and debris. 2-0 vicryl was used in figure-of eight stitches at the hysterotomy to obtain excellent hemostasis. Noe powder was applied to all raw edges to ensure continuing hemostasis. Excellent hemostasis was observed. The fascial incision was reapproximated using 0 Vicryl in a running stitch. The subcutaneous tissue was irrigated, and reapproximated using 2-0 plain gut in a running stitch. The skin was reapproximated using 4-0 Vicryl in a running subcuticular stitch. Steri-Strips and a bandage were applied. The patient tolerated the procedure well, and will be taken to the recovery area in stable and good condition. Sponge, needle, instrument counts correct x 2 at conclusion of case. I attest to the content of the Intraoperative Record and any orders documented therein. Any exceptions are noted below.
[2021-07-23] MEDS: diphenhydrAMINE 50 MG/ML VIAL IV PRN ×3 (02:13→15:30)
[2021-07-23] MEDS: NALBUPHINE HCL INJ 10 MG/ML AMP IV PRN ×3 (02:36→16:54)
[2021-07-23 03:36] LABS: Base Excess Cord Arterial Bld 0.4 mEq/L (-9-1.8); Base Excess Cord Venous Blood 1.3 mEq/L (-7.7-1.9); CO2 Cord Arterial Blood 47 mmHg (39.1-73.5); Cord Venous Blood HCO3 26 mmol/L (18.4-26.8); Cord Venous Blood PCO2 39 mmHg (30.4-57.2); Cord Venous Blood PO2 17 mmHg (14.1-43.3); Cord Venous Blood pH 7.43 (7.20-7.44); HCO3 Cord Arterial Blood 26 mmol/L (19.7-28.5); O2 Saturation Cord Venous Bld < 60.0 % (<68); Oxygen Sat Cord Arterial Blood < 60.0 % (<60); PO2 Cord Arterial Blood 12 mmHg (4.1-31.7); pH Cord Arterial Blood 7.37 (7.1-7.38)
[2021-07-23] MEDS: OXYTOCIN 30 UNITS in LACTATED RINGER'S 1,000 ML IV SCH ×2 (03:38→11:52)
[2021-07-23] MEDS: LEVOTHYROXINE SODIUM 25 MCG TABLET PO SCH (06:28)
[2021-07-23 06:45] LABS: Basophils # (auto) 0.03 K/uL (0-0.2); Basophils % (auto) 0.2 %; Eosinophils # (auto) 0.07 K/uL (0-0.5); Eosinophils % (auto) 0.4 %; Hematocrit (blood only) 32.6 % (37-47); Immature Granulocytes # (auto) 0.06 K/uL (0.00-0.02); Immature Granulocytes % (auto) 0.3 %; Lymphocytes # (auto) 3.26 K/uL (1.2-3.4); Lymphocytes % (auto) 18.3 %; Mean Corpuscular Hemoglobin 30.6 pg (25-34); Mean Corpuscular Hgb Conc 33.7 g/dL (32-36); Mean Corpuscular Volume 90.6 fL (80-100); Mean Platelet Volume 9.9 fL (7.4-10.4); Monocytes # (auto) 0.84 K/uL (0.11-0.59); Monocytes % (auto) 4.7 %; Neutrophils # (auto) 13.55 K/uL (1.4-6.5); Neutrophils % (auto) 76.1 %; Platelet Count 206 K/uL (130-400); RDW Coefficient of Variation 14.5 % (11.5-14.5); RDW Standard Deviation 47.8 fL (36.4-46.3); White Blood Count 17.81 K/uL (4.8-10.8)
--- NOTE | 2021-07-23 07:22 | Anesthesiology Progress Note ---
Date of Service July 23, 2021 Anesthesia Post Procedure Vital Signs Vital Signs: Temp Pulse Pulse Resp BP BP Pulse Ox 07/23/21 06:33 16 94 07/23/21 05:30 18 94 07/23/21 04:30 18 97 07/23/21 03:30 37.3 C 98 H 16 117/59 L 96 07/23/21 03:25 37.3 C 98 H 16 97 07/23/21 03:24 88 117/59 L 07/23/21 03:20 75 97 07/23/21 03:15 75 97 07/23/21 03:14 81 113/56 L 07/23/21 03:10 77 97 07/23/21 03:05 77 97 07/23/21 03:04 96 H 126/59 L 07/23/21 03:00 75 96 07/23/21 02:55 69 16 96 07/23/21 02:54 80 115/59 L 07/23/21 02:50 73 97 07/23/21 02:45 73 97 07/23/21 02:44 75 116/59 L 07/23/21 02:40 85 98 07/23/21 02:35 82 97 07/23/21 02:34 86 134/66 07/23/21 02:30 102 H 97 07/23/21 02:25 88 18 97 07/23/21 02:24 93 H 128/59 L 07/23/21 02:20 93 H 98 07/23/21 02:15 99 H 18 99 07/23/21 02:14 91 H 132/63 07/23/21 02:10 103 H 97 07/23/21 02:05 92 H 20 97 07/23/21 02:04 89 134/64 07/23/21 02:00 97 H 96 07/23/21 01:55 81 20 125/68 99 07/23/21 01:50 108 H 97 07/23/21 01:46 98 H 138/82 07/23/21 01:45 100 H 18 144/113 H 98 07/23/21 01:40 90 99 07/23/21 01:36 90 92 07/23/21 01:35 84 18 100 07/23/21 01:34 86 131/63 07/23/21 01:25 37.0 C 18 07/23/21 01:24 86 133/77 07/22/21 23:43 93 H 142/88 H 07/22/21 23:41 103 H 138/89 07/22/21 23:30 18 07/22/21 23:26 89 134/89 07/22/21 23:21 106 H 99 07/22/21 23:16 97 H 99 07/22/21 23:12 95 H 135/81 07/22/21 23:11 100 H 135/100 98 07/22/21 23:06 71 98 07/22/21 23:05 36.9 C 07/22/21 23:01 70 98 07/22/21 23:00 18 07/22/21 22:56 75 98 07/22/21 22:55 72 114/57 L 07/22/21 22:51 69 98 07/22/21 22:46 71 98 07/22/21 22:41 69 99 07/22/21 22:40 73 126/60 07/22/21 22:36 70 98 07/22/21 22:31 69 98 07/22/21 22:30 18 07/22/21 22:26 73 99 07/22/21 22:25 68 129/57 L 07/22/21 22:21 70 99 07/22/21 22:16 69 98 07/22/21 22:11 77 99 07/22/21 22:10 76 135/64 07/22/21 22:06 73 100 07/22/21 22:01 81 100 07/22/21 22:00 18 07/22/21 21:56 69 100 07/22/21 21:55 68 121/60 07/22/21 21:51 67 100 07/22/21 21:46 68 100 07/22/21 21:41 68 100 07/22/21 21:40 67 124/57 L 07/22/21 21:36 79 100 07/22/21 21:31 82 99 07/22/21 21:30 20 07/22/21 21:26 76 139/75 99 07/22/21 21:21 84 99 07/22/21 21:16 78 97 07/22/21 21:11 82 127/78 99 07/22/21 21:06 82 100 07/22/21 21:01 94 H 100 07/22/21 21:00 36.7 C 18 07/22/21 20:56 68 100 07/22/21 20:55 66 120/62 07/22/21 20:51 69 99 07/22/21 20:46 84 99 07/22/21 20:41 74 99 07/22/21 20:40 75 133/83 07/22/21 20:36 80 99 07/22/21 20:31 83 99 07/22/21 20:30 20 07/22/21 20:26 72 98 07/22/21 20:25 72 134/88 07/22/21 20:21 84 100 07/22/21 20:16 89 100 07/22/21 20:11 72 141/78 H 100 07/22/21 20:06 70 99 07/22/21 20:01 77 100 07/22/21 20:00 20 07/22/21 19:56 100 H 100 07/22/21 19:55 69 133/79 07/22/21 19:51 71 100 07/22/21 19:46 74 99 07/22/21 19:41 59 L 100 07/22/21 19:40 62 140/67 07/22/21 19:36 122 H 99 07/22/21 19:31 75 100 07/22/21 19:30 18 07/22/21 19:26 88 91 07/22/21 19:25 71 130/69 07/22/21 19:21 81 100 07/22/21 19:20 101 H 92 07/22/21 19:16 96 H 100 07/22/21 19:11 85 100 07/22/21 19:10 36.8 C 77 18 129/67 07/22/21 19:06 83 100 07/22/21 19:01 73 100 07/22/21 19:00 18 07/22/21 18:56 89 132/71 99 07/22/21 18:51 66 100 07/22/21 18:46 80 100 07/22/21 18:41 80 131/67 100 07/22/21 18:36 80 100 07/22/21 18:31 79 100 07/22/21 18:26 83 100 07/22/21 18:25 114 H 117/73 07/22/21 18:21 98 H 100 07/22/21 18:16 102 H 100 07/22/21 18:11 67 142/77 H 100 07/22/21 18:06 62 100 07/22/21 18:01 67 100 07/22/21 17:56 82 100 07/22/21 17:51 66 100 07/22/21 17:46 75 100 07/22/21 17:41 69 100 07/22/21 17:40 82 135/77 07/22/21 17:36 83 100 07/22/21 17:31 89 100 07/22/21 17:26 83 100 07/22/21 17:25 88 116/77 07/22/21 17:21 63 100 07/22/21 17:16 83 100 07/22/21 17:11 65 112/85 100 07/22/21 17:06 96 H 100 07/22/21 17:01 115 H 100 07/22/21 17:00 18 07/22/21 16:56 67 100 07/22/21 16:55 59 L 146/70 H 07/22/21 16:51 65 100 07/22/21 16:46 63 100 07/22/21 16:42 60 134/76 07/22/21 16:41 59 L 100 07/22/21 16:36 71 100 07/22/21 16:31 70 100 07/22/21 16:26 63 100 07/22/21 16:25 64 132/73 07/22/21 16:21 67 100 07/22/21 16:16 60 100 07/22/21 16:11 61 144/79 H 100 07/22/21 16:06 63 100 07/22/21 16:01 59 L 100 07/22/21 16:00 18 07/22/21 15:56 65 100 07/22/21 15:55 58 L 134/69 07/22/21 15:51 61 100 07/22/21 15:46 75 100 07/22/21 15:42 36.7 C 18 07/22/21 15:41 76 100 07/22/21 15:40 78 130/84 07/22/21 15:36 95 H 100 07/22/21 15:31 80 100 07/22/21 15:30 18 07/22/21 15:26 78 133/75 100 07/22/21 15:21 83 100 07/22/21 15:16 74 100 07/22/21 15:11 75 100 07/22/21 15:10 70 135/77 07/22/21 15:06 85 100 07/22/21 15:01 67 99 07/22/21 14:56 70 99 07/22/21 14:55 91 H 140/81 07/22/21 14:51 73 99 07/22/21 14:50 76 139/83 07/22/21 14:48 77 138/87 07/22/21 14:46 36.4 C L 79 142/87 H 99 07/22/21 14:44 82 146/92 H 07/22/21 14:42 81 143/92 H 07/22/21 14:41 82 99 07/22/21 14:40 74 164/93 H 07/22/21 14:36 78 100 07/22/21 14:35 100 H 165/88 H 07/22/21 14:32 72 160/87 H 07/22/21 14:31 74 100 07/22/21 14:26 80 158/88 H 100 07/22/21 14:22 66 158/82 H 07/22/21 14:21 69 100 07/22/21 14:16 69 178/85 H 100 07/22/21 14:11 77 139/81 07/22/21 13:01 69 133/82 07/22/21 12:01 36.4 C L 65 18 135/80 07/22/21 11:16 70 132/75 07/22/21 10:24 81 134/84 07/22/21 09:59 78 137/86 07/22/21 09:06 87 148/90 H 07/22/21 08:12 86 137/84 07/22/21 08:10 36.6 C 22 07/22/21 07:51 103 H 148/85 H Pain Intensity Anterior Abdomen: Pain Intensity: 4 Transfer of Care Handoff Completed per policy Notes Mental Status: alert / awake / arousable and participated in evaluation Patient Amnestic to Procedure: Yes Nausea / Vomiting: adequately controlled Pain: adequately controlled Airway Patency, RR, SpO2: stable & adequate BP & HR: stable & adequate Hydration State: stable & adequate Neuraxial Anesthesia: was administered and sensory block is resolving Anesthetic Complications: no major complications apparent
[2021-07-23] MEDS: DOCUSATE SODIUM 100 MG CAP PO SCH ×2 (08:51→21:20)
[2021-07-23] MEDS: SIMETHICONE 80 MG CHEW PO SCH ×4 (08:51→21:20)
[2021-07-23] MEDS: FERROUS SULFATE 325 MG TAB PO SCH (08:52)
[2021-07-23] MEDS: PRENATAL VITAMIN 1 TAB PO SCH (08:52)
[2021-07-23] MEDS: LABETALOL HCL 100 MG TAB PO SCH ×2 (08:53→21:19)
[2021-07-23] MEDS: LACTATED RINGER'S 1,000 ML IV SCH ×3 (09:18→18:48)
[2021-07-23] MEDS ORDERED: diphenhydrAMINE 50 MG/ML VIAL IV PRN (18:40)
[2021-07-23] MEDS ORDERED: oxyCODONE/ACETAMINOPHEN 5mg/325mg TAB PO PRN (18:40)
[2021-07-23] MEDS ORDERED: diphenhydrAMINE Capsule 25 MG CAP PO PRN (18:40)
[2021-07-23] MEDS ORDERED: PROMETHAZINE HCL 25 MG in SODIUM CHLORIDE 0.9% 50 ML IV PRN (18:40)
[2021-07-23] MEDS: ACETAMINOPHEN W/CODEINE #3 1 TAB PO PRN ×2 (19:32→23:05)
[2021-07-23] MEDS: HEPARIN SOD 5,000 UNIT/0.5 ML VIAL SQ SCH (21:20)
[2021-07-24] MEDS: ACETAMINOPHEN W/CODEINE #3 1 TAB PO PRN ×4 (06:18→20:11)
[2021-07-24 06:20] LABS: Hematocrit (blood only) 28.7 % (37-47); Hemoglobin 9.5 g/dL (12.0-16.0)
[2021-07-24] MEDS: LEVOTHYROXINE SODIUM 25 MCG TABLET PO SCH (06:37)
[2021-07-24] MEDS: LACTATED RINGER'S 1,000 ML IV SCH ×3 (07:26→18:24)
--- NOTE | 2021-07-24 07:32 | Obstetrical Progress Note ---
Date of Service <Yony Kerns MD - Last Filed: 07/24/21 07:32> July 24, 2021 Assessment & Plan <Yony Kerns MD - Last Filed: 07/24/21 07:32> (1) Encounter for care and examination after delivery: POD 1: stable, routine postoperative management * GBS +, RI, Rh+ * DVT/PE prophylaxis: Heparin 10,000 units SQ every 12 hours started at 9 PM yesterday (day 05/14). Continue x7 days total. * patient voiding, ambulating without difficulty * pain well controlled on Percocet only (no ibuprofen) * tolerating regular diet * bottle feeding * Observe on L&D floor today * Reassess d/c readiness tomorrow <Corey Peralta MD, FACOG - Last Filed: 07/24/21 07:36> (1) Encounter for care and examination after delivery: Subjective <Yony Kerns MD - Last Filed: 07/24/21 07:32> Post Trinidad is a 36y/o female primigravid who is POD 1 following for chronic hypertension at 39.1 WGA. She reports feeling well overall this morning. Some abdominal cramping pain well managed on analgesics. Voiding well. Tolerating meals overnight and able to ambulate on her own. Is passing gas but no bowel movement. Bleeding is minimal this morning. Currently bottle-feeding. Review of Systems Denies fever, chills, sweats Denies shortness of breath, difficulty breathing, chest pain, palpitations, chest pressure. Denies breast pain. Denies dysuria. Denies headache or changes in vision. Physical Exam <Yony Kerns MD - Last Filed: 07/24/21 07:32> General: Alert, oriented. No acute distress. Cardiac: Regular rate and rhythm, no murmurs/rubs/gallops. Respiratory: Clear to auscultation bilaterally a/p, no wheezes/rales/rhonchi. No increased work of breathing. Symmetrical chest rise. No respiratory distress. Abdomen: Soft, nontender, nondistended. Bowel sounds present. Uterus: Uterine fundus firm, palpable 2 cm below umbilicus. Surgical scar clean and healing well. Lower Extremities: No lower extremity edema or swelling. No deep calf pain. Moses's negative bilaterally. Results & Data ([facility]) <Yony Kerns MD - Last Filed: 07/24/21 07:32> Vital Signs (Past 12 Hours) Vital Signs Temp Pulse Resp BP Pulse Ox 07/24/21 00:50 36.6 C 77 16 108/67 97 07/23/21 21:17 91 H 112/69 07/23/21 19:40 37.1 C 92 H 16 106/68 97 <Corey Peralta MD, FACOG - Last Filed: 07/24/21 07:36> Co-Signing Physician Notes Resident Physician Supervision Note: I interviewed and examined the patient. Discussed with [Name of resident] and agree with findings and plan as documented in the note. Any exceptions or clarifications are listed here: [None] Documented By: Corey Peralta MD, FACOG Resident Activity Tracking <Yony Kerns MD - Last Filed: 07/24/21 07:32> Resident Involvement: Resident Care Provided Care Provided: Adult Hospital Medicine
[2021-07-24] MEDS: SIMETHICONE 80 MG CHEW PO SCH ×4 (08:46→20:46)
[2021-07-24] MEDS: PRENATAL VITAMIN 1 TAB PO SCH (08:46)
[2021-07-24] MEDS: LABETALOL HCL 100 MG TAB PO SCH ×2 (08:46→20:46)
[2021-07-24] MEDS: DOCUSATE SODIUM 100 MG CAP PO SCH ×2 (08:46→20:46)
[2021-07-24] MEDS: FERROUS SULFATE 325 MG TAB PO SCH (08:46)
[2021-07-24] MEDS: HEPARIN SOD 5,000 UNIT/0.5 ML VIAL SQ SCH ×2 (08:47→20:47)
[2021-07-24] MEDS ORDERED: bisacodyL 5 MG TABEC PO SCH (20:00)
[2021-07-25] MEDS ORDERED: bisacodyL 10 MG SUPP PR PRN (01:21)
[2021-07-25] MEDS: ACETAMINOPHEN W/CODEINE #3 1 TAB PO PRN ×2 (04:53→12:38)
[2021-07-25] MEDS: LEVOTHYROXINE SODIUM 25 MCG TABLET PO SCH (06:23)
[2021-07-25] MEDS: HEPARIN SOD 5,000 UNIT/0.5 ML VIAL SQ SCH (08:49)
[2021-07-25] MEDS: DOCUSATE SODIUM 100 MG CAP PO SCH (08:52)
[2021-07-25] MEDS: LABETALOL HCL 100 MG TAB PO SCH (08:52)
[2021-07-25] MEDS: SIMETHICONE 80 MG CHEW PO SCH (08:52)
[2021-07-25] MEDS: PRENATAL VITAMIN 1 TAB PO SCH (08:52)
[2021-07-25] MEDS: FERROUS SULFATE 325 MG TAB PO SCH (08:52)
--- NOTE | 2021-07-25 09:11 | Obstetrical Progress Note ---
Date of Service July 25, 2021 Assessment & Plan (1) Encounter for care and examination after delivery: 36yo G1 Day 2 s/p LTCS. Doing well. Routine care Subjective Ambulation: ambulating normally Voiding: no voiding problems Passing Gas:: Yes Diet Tolerance:: regular diet Lochia:: Moderate Feeding Type:: breast feeding Physical Exam Constitutional WD/WN, vitals as above Respiratory normal respiratory effort; no respiratory distress and no labored breathing Gastrointestinal (Abdomen) Inspection/Auscultation: abdomen normal to inspection; abdomen not distended Percussion/Palpation: abdomen soft; abdomen nontender, no guarding and abdomen not rigid Incision C/D/I Genitourinary OB Exam Abdomen: + fundal height Fundus: + firm and + relation to umbilicus (Below); not tender or not boggy Results & Data ([facility]) Vital Signs (Past 12 Hours) Vital Signs Temp Pulse Resp BP 07/25/21 07:55 36.7 C 61 16 136/83 07/25/21 00:00 36.6 C 71 18 129/82
== END 2021-07-25 12:40 | disposition home or self-care (01) | DRG 788 ==
LOC: 4S1 07:40 → 4S2 07-23 03:51 → 4E2 07-23 09:19

== ENCOUNTER 2023-10-27 05:30 | Inpatient (IN) ==
--- NOTE | 2023-10-10 08:32 | Anesthesiology Consultation ---
Date of Service October 10, 2023 Assessment & Plan (1) Encounter for pre-operative examination: Plan - neuraxial anesthesia: per OB notation 10/03/23: plan is to transition lovenox to heparin at 36 weeks and S hematology notes plan to discontinue heparin > 24 hours before planned . Note scanned to chart for reference. - Per assessment specialist on 10/09/23: No known infectious disease contacts, current infectious disease symptoms in past 10 days or COVID positive test result in the past 30 days. Chart Review Chart Review: data entry clerk initiated History Surgery Operation Date: 10/27/23 07:30 Proposed Procedures p Section (Delivery of Baby Through Abdominal Incision) - Ritu ibarra DO s With Bilateral Tubal Ligation - Ritu Wyatt DO Height/Weight Height: 5 ft 4.5 in Weight: 89.358 kg Allergies Allergy/AdvReac Type Severity Reaction Status Date / Time No Known Allergies Allergy Unknown Verified 10/09/23 11:09 Medications Home Medications Medication Instructions Recorded Confirmed Last Taken fluticasone propionate 50 1 sprays intranasal UD PRN 12/27/18 10/09/23 Unknown mcg/actuation nasal allergies spray,suspension labetalol 100 mg tablet 50 mg PO BID 09/16/20 10/09/23 Unknown enoxaparin 40 mg/0.4 mL 40 mg subcut QAM 03/14/23 10/09/23 Unknown subcutaneous syringe vit 168-iron 27 mg-folic 1 cap PO HS 03/14/23 10/09/23 Unknown acid 800 mcg-omega3 235 mg capsule (One-A-Day -1) acetone (urine) test (Ketone Urine #50 ea 04/03/23 10/04/23 Unknown Test strips) blood sugar diagnostic (OneTouch #150 ea 04/03/23 10/04/23 Unknown Verio test strips) lancets 33 gauge (OneTouch Delica #150 ea 04/03/23 10/04/23 Unknown Plus Lancet) albuterol sulfate 90 mcg/actuation 2 puffs inhalation Q6H PRN 10/09/23 10/09/23 Unknown aerosol inhaler seasonal asthma lansoprazole 15 mg capsule,delayed 15 mg PO QAM 10/09/23 10/09/23 Unknown release (Prevacid 24Hr) levothyroxine 75 mcg tablet 75 mcg PO QAM 10/09/23 10/09/23 Unknown metoclopramide HCl 10 mg tablet 10 mg PO UD PRN nausea and vomiting 10/09/23 10/09/23 Unknown (Reglan) Past Medical History Medical History (Updated 10/10/23 @ 08:21 by Laila Amaro PA-C) Antiphospholipid syndrome denies Asthma due to seasonal allergies no recent flare. GERD (gastroesophageal reflux disease) Gestational diabetes diet controlled. History of anesthesia reaction very itchy following c/s for 12-15 hours following. Sometimes slower to wake up. History of anxiety History of chlamydia infection History of DVT (deep vein thrombosis) approx 2019/unknown etiology History of kidney stones History of pulmonary embolism approx 2019/unknown etiology HTN (hypertension) Hypothyroid Nausea after anesthesia Past Family History Family History Mother Asthma Father Hypertension Grandfather (Maternal) Liver cancer Viral hepatitis C Grandmother (Paternal) Myocardial infarction Denies family history of Ovarian cancer Prostate cancer Breast cancer Colorectal cancer Past Surgical History Surgical History Chorioretinal scar after retinal detachment surgery H/O arthroscopic knee surgery History of x1 History of colonoscopy History of mandibular surgery hx underbite/hardware. no limitations. History of urologic surgery for kidney stone. S/P sinus surgery deviated septum Social History Smoking Status: Never smoker Do You Dip or Chew Tobacco: No Hx Alcohol Use: No Hx Substance Use: No substance use type: does not use Lab Results Anesthesia Preop Results Results Anesthesia Widget: Creat 0.56 mg/dl (0.6-1.2) L 08/21/23 TSH 1.447 uIu/ml (0.300-4.500) 08/31/23 Free T4 0.57 ng/dl (0.61-1.60) L 08/31/23 Urine Color Yellow 08/17/23 Urine Appearance Clear (Clear) 08/17/23 Urine pH 6.5 (4.5-7.5) 08/17/23 Urine Specific [place] 1.002 (1.000-1.030) 08/17/23 Urine Protein Negative (Negative) 08/17/23 Urine Glucose (UA) Negative (Negative) 08/17/23 Urine Ketones Negative (Negative) 08/17/23 Urine Blood Negative (Negative) 08/17/23 Urine Nitrite Negative (Negative) 08/17/23 Urine Bilirubin Negative (Negative) 08/17/23 Urine Urobilinogen Negative (Negative) 08/17/23 Urine Leukocyte Esterase Negative (Negative) 08/17/23 Testing Laboratory Results 09/18/23 WBC: 13.2 H/H: PLATELETS: 215,000 Electrocardiogram Date: 04/19/23 NSR, rate 99 bpm Echocardiogram Date: 02/12/20 EF 59% Normal LV wall motion No significant valvular disease Stress Test Date: 09/16/19 Exercise METS 12 minutes at standard protocol MPHR 96% Negative study EF 55-59% Normal LV wall motion No significant valvular disease
--- NOTE | 2023-10-26 13:37 | History & Physical Report ---
Date of Service October 26, 2023 Assessment & Plan (1) Chronic hypertension affecting : Plan: 38w delivery d/t cHTN and delivery via CS d/t history of CS. Reviewed consent in detail in office, plan for delivery by section with tubal sterilization per patient request for sterilization. History of Present Illness Chief Complaint: h/o CS x 1 Primary Care Provider: Diamond Aly PA-C 38yo wt EDC 11/06/23 scheduled for repeat section. and Delivery Plans History of Blood clots Pulmonary Embolus *[place] [facility] [facility] [place]anemia and has been given iv iron via hematology as well *planned transition to heparin at 36 weeks. CHTN on Meds *Baby ASA daily start 12-28 wks, continue until delivery *wkly NST's @32wks and twice wkly @36 wks *Serial Growth US @ 24 (doppler only if abnml) *Baseline 24hr urine (additioinal PRN) 166.4 *weekly RAE's @ 32wk(If on Meds) *Deliver [id number] (If on Meds) GDM in prior *Begin monthly Growth US's @24wks AMA *Weekly NST's @ 36wks GBS in urine *treat in labor Previous c/s--desires repeat C/S WITH TUBAL SCHEDULED FOR 10/27/[address] AJIT MOY Polyhydramnios--8.3cm on 09/27 *Weekly NSTs if fluid 12 or greater *Weekly AFIs @ Dx *If pocket >16 refer to [facility] *Deliver between [id number] Allergies Allergy/AdvReac Type Severity Reaction Status Date / Time No Known Allergies Allergy Unknown Verified 10/26/23 08:24 Home Medications Medication Instructions Recorded Confirmed Type fluticasone propionate 50 1 sprays intranasal UD PRN 12/27/18 10/26/23 History mcg/actuation nasal allergies spray,suspension labetalol 100 mg tablet 50 mg PO BID 09/16/20 10/26/23 History enoxaparin 40 mg/0.4 mL 40 mg subcut QAM 03/14/23 10/26/23 History subcutaneous syringe vit 168-iron 27 mg-folic 1 cap PO HS 03/14/23 10/26/23 History acid 800 mcg-omega3 235 mg capsule (One-A-Day -1) acetone (urine) test (Ketone Urine #50 ea 04/03/23 10/26/23 Rx Test strips) blood sugar diagnostic (OneTouch #150 ea 04/03/23 10/26/23 Rx Verio test strips) lancets 33 gauge (OneTouch Delica #150 ea 04/03/23 10/26/23 Rx Plus Lancet) albuterol sulfate 90 mcg/actuation 2 puffs inhalation Q6H PRN 10/09/23 10/26/23 History aerosol inhaler seasonal asthma lansoprazole 15 mg capsule,delayed 15 mg PO QAM 10/09/23 10/26/23 History release (Prevacid 24Hr) levothyroxine 75 mcg tablet 75 mcg PO QAM 10/09/23 10/26/23 History metoclopramide HCl 10 mg tablet 10 mg PO UD PRN nausea and vomiting 10/09/23 10/26/23 History (Reglan) Patient History Medical History (Updated 10/10/23 @ 08:21 by Laila Amaro PA-C) History of anxiety GERD (gastroesophageal reflux disease) Nausea after anesthesia History of anesthesia reaction very itchy following c/s for 12-15 hours following. Sometimes slower to wake up. History of kidney stones Gestational diabetes diet controlled. History of pulmonary embolism approx 2020/unknown etiology History of DVT (deep vein thrombosis) approx 2020/unknown etiology Hypothyroid HTN (hypertension) Asthma due to seasonal allergies no recent flare. Antiphospholipid syndrome denies History of chlamydia infection Surgical History History of colonoscopy History of x1 History of urologic surgery for kidney stone. S/P sinus surgery deviated septum H/O arthroscopic knee surgery Chorioretinal scar after retinal detachment surgery History of mandibular surgery hx underbite/hardware. no limitations. Family History Mother Asthma Father Hypertension Grandfather (Maternal) Liver cancer Viral hepatitis C Grandmother (Paternal) Myocardial infarction Denies family history of Ovarian cancer Prostate cancer Breast cancer Colorectal cancer Social History (Updated 03/14/23 @ 10:37 by Maddie Mascorro) Smoking Status: Never smoker Second Hand Exposure: No; Do You Dip or Chew Tobacco: No; Hx Alcohol Use: No Hx Substance Use: No Preferred Language: Lithuanian Communication Ability: Effective Hygiene Teacher Required: No Beliefs That Will Affect Care: None marital status: marital status details: Levar [phone] Current Living Situation: Spouse and Family Current Living Situation Comment: lives with spouse, son, 1 dog. current occupational status: employed current occupation: [employer] Feels Safe at Home: Yes Assistive Devices: None Review of Systems All systems reviewed & are unremarkable except as noted in HPI & below Physical Exam Constitutional: WD/WN, vitals as above Respiratory: normal respiratory effort, lungs clear to auscultation no respiratory distress Cardiovascular: Rate/Rhythm: regular rate and regular rhythm Gastrointestinal (Abdomen): Inspection/Auscultation: abdomen normal to inspection Percussion/Palpation: abdomen soft; abdomen nontender Gravid. No s/s chorio or abruption. Skin: no rashes, warm and dry Psychiatric: A+Ox3, euthymic affect Coding Level of Care Code None Diagnoses Chronic hypertension affecting O10.919
[2023-10-27] MEDS ORDERED: SODIUM CHLORIDE 0.9% 250 ML IV PRN (05:38)
[2023-10-27] MEDS: LACTATED RINGER'S 1,000 ML IV SCH ×2 (05:55→07:05)
[2023-10-27 06:11] LABS: Basophils # (auto) 0.04 K/uL (0.00-0.20); Basophils % (auto) 0.3 %; Eosinophils # (auto) 0.29 K/uL (0.00-0.50); Eosinophils % (auto) 2.4 %; Hematocrit (blood only) 36.5 % (37.0-47.0); Hemoglobin 12.3 g/dl (12.0-16.0); Immature Granulocytes # (auto) 0.11 K/uL (0.01-0.20); Immature Granulocytes % (auto) 0.9 %; Lymphocytes # (auto) 3.03 K/uL (1.20-3.40); Lymphocytes % (auto) 24.7 %; Mean Corpuscular Hemoglobin 29.9 pg (25.0-34.0); Mean Corpuscular Hgb Conc 33.7 g/dL (32.0-36.0); Mean Corpuscular Volume 88.8 fL (80.0-100.0); Mean Platelet Volume 10.4 fL (9.4-12.4); Monocytes # (auto) 0.74 K/uL (0.11-0.59); Neutrophils # (auto) 8.05 K/uL (1.40-6.50); Neutrophils % (auto) 65.7 %; Platelet Count 212 K/uL (130-400); RDW Coefficient of Variation 13.6 % (11.5-14.5); RDW Standard Deviation 44.3 fL (36.4-46.3); Red Blood Count 4.11 M/uL (4.20-5.40); White Blood Count 12.26 K/ul (4.8-10.8)
[2023-10-27 06:30] LABS: INR 0.9 (0.9-1.1); Partial Thromboplastin Ratio 0.9; Partial Thromboplastin Time 24 Seconds (21-31); Prothrombin Time 10.1 Seconds (9.0-12.0)
--- NOTE | 2023-10-27 07:33 | History & Physical Bridge Note ---
Date of Service October 27, 2023 History & Physical Bridge Note I have examined the patient, reviewed the History & Physical and in the interval since the performance of the History & Physical I have noted the following changes of clinical significance: no changes noted
[2023-10-27] MEDS: CITRIC ACID/SODIUM CITRATE 15 ML UDC PO SCH (07:37)
[2023-10-27] MEDS ORDERED: MoRPHine SULFATE PF 1 MG/ML 10 ML AMP/VIAL ONE (07:47)
[2023-10-27] MEDS ORDERED: PROMETHAZINE HCL 6.25 MG in SODIUM CHLORIDE 0.9% 50 ML IV PRN (07:56)
[2023-10-27] MEDS ORDERED: NALOXONE HCL 0.08 MG in SYRINGE 1.8 ML IV PRN (07:56)
[2023-10-27] MEDS ORDERED: MEPERIDINE HCL 25 MG/ML CARP/VIAL IV PRN (07:56)
[2023-10-27] MEDS ORDERED: ONDANSETRON INJ 2 MG/ML 2 ML VIAL IV PRN ×2 (07:56→10:43)
[2023-10-27] MEDS ORDERED: HYDROmorphone INJ 0.5 MG/0.5 ML SYR IV PRN (07:56)
[2023-10-27] MEDS ORDERED: NALOXONE HCL 0.4 MG/1 ML VIAL/CARP IV PRN (07:56)
[2023-10-27] MEDS ORDERED: DROPERIDOL 5 MG/2 ML VIAL IV PRN (07:56)
[2023-10-27] MEDS ORDERED: MoRPHine SULFATE 2 MG/ML CARP IV PRN (07:56)
[2023-10-27] MEDS ORDERED: ePHEDrine sulfate 50 MG/ML AMP IV PRN (07:56)
[2023-10-27] MEDS ORDERED: NALOXONE HCL 1 MG in SODIUM CHLORIDE 0.9% 1,000 ML IV PRN (07:56)
[2023-10-27] MEDS ORDERED: LACTATED RINGER'S 500 ML IV PRN (07:56)
[2023-10-27] MEDS ORDERED: DC INTRASPINAL MORPHINE SCH (08:00)
[2023-10-27] MEDS ORDERED: NO NARCOTICS OR SEDATIVES SCH (08:00)
[2023-10-27] MEDS: ceFAZolin 2000MG 2,000 MG/15 ML SYR IV SCH (08:47)
[2023-10-27] MEDS ORDERED: OXYTOCIN 10 UNITS/ML VIAL ONE (10:29)
[2023-10-27] MEDS ORDERED: PHENYLEPHRINE 100MCG/ML 10ML SYR IV ONE (10:30)
--- OUTSIDE RECORDS SUMMARY | 2023-10-27 10:34 | External Medical Summary | Summary of Care ---
Author Name Unknown Organization [facility] Address [address] [place] [address] Phone [phone] Care Team Providers Care Chief Steward/Stewardess Name Role Phone Danette Zhang PA-C Primary Care Provider [phone] Reason for Visit * Reason Comments Dosage Adjustment Via Phone (anticoag Cl inic) Encounter Details Date Type Department Care Team (Latest Contact Info) Description 10/26/2023 6:45 AM EDT Anticoagulation Centralized Clinical Pharmacy Services, Katie Zacarias [address] [place] [address] [place] [address] [place] [phone] History of pulmonary embolism*; APL (antiphospholipid syndrome) ([facility]); History of DVT (deep vein thrombosis); and not yet delivered in third trimester Allergies No known active allergiesdocumented as of this encounter (statuses as of 10/26/2023) Medications Medication Sig Dispensed Refills Start Date End Date Status Albuterol Sulfate (PROAIR HFA) 108 (90 Base) MCG/ACT AERS Inhale 2 Puffs by mouth every 4 hours as needed for Shortness of Breath or Wheezing. 1 Inhaler 3 07/25/2019 Active Albuterol Sulfate (2.5 MG/3ML) 0.083% Inhalation Nebulization Solution (Proventil) Inhale 1 Vial via nebulizer every 6 hours as needed for Wheezing. 120 mL 01/12/2021 Active BD Syringe Luer-Alexa 1 ML (Syringe (Disposable)) Use for under the skin injections every 12 hours 25 Each 2 06/25/2021 Active Syringe Luer Lock 25G X 5/8" 3 ML Use to inject heparin under the skin twice daily 50 Each 2 07/09/2021 Active Lansoprazole 15 MG Oral Capsule Delayed Release (Prevacid) 1 Capsule. 02/18/2021 Active Azelastine HCl 0.1 % Nasal Solution (Astelin)Indication s:Acute recurrent sinusitis, unspecified location Administer 1 [place] into nostril in the morning and 1 [place] before bedtime. 30 mL 11 04/20/2022 Active Ferrous Sulfate 325 (65 Fe) MG Oral Tablet (Feosol)Indications :Iron deficiency anemia due to chronic blood loss Take 1 Tablet by mouth daily with breakfast. 90 Tablet 1 08/08/2022 Active Additional Information Patient not taking.Reported on 06/30/2023 Labetalol HCl 100 MG Oral Tablet (Normodyne) TAKE 1/2 TABLET IN THE MORNING AND TAKE 1/2 TABLET before bedtime 90 Tablet 2 02/07/2023 Active Rivaroxaban 10 MG Oral Tablet (Xarelto)Indication s:History of pulmonary embolism Take 1 Tablet by mouth in the morning. 30 Tablet 3 02/17/2023 Active Additional Information Patient not taking.Reported on 05/24/2023 Enoxaparin Sodium 40 MG/0.4ML Injection Solution Prefilled Syringe (Lovenox)Indication s:History of pulmonary embolism Inject 40 mg under the skin in the morning. 24 mL 2 03/13/2023 Active Additional Information Patient not taking.Reported on 10/23/2023 Levothyroxine Sodium 25 MCG Oral Tablet (Levoxyl)Indication s:Hypothyroidism during in third trimester Take 1 Tablet by mouth in the morning. (at least 30 min prior to breakfast or other meds). 90 Tablet 04/05/2023 Active Ondansetron 4 MG Oral Tablet Disintegrating (Zofran) Place 1 Tablet on tongue every 8 hours as needed for Nausea. dissolve on tongue. 15 Tablet 04/20/2023 Active predniSONE 10 MG Oral Tablet (Deltasone)Indicati ons:Dysfunction of right eustachian tube Take 5 tabs for 2 days, 4 tabs for 2 days, 3 tabs for 2 days, 2 tabs for 2 days 1 tab for 2 days 30 Tablet 06/30/2023 Active Additional Information Patient not taking.Reported on 10/23/2023 Vitamin B-12 1000 MCG Oral Tablet (Cyanocobalamin)Ind ications:Hypoprolif erative anemia (HCC) Take 1 Tablet by mouth in the morning. 90 Tablet 2 07/28/2023 Active Heparin Sodium (Porcine) 79399 UNIT/ML Injection Solution Inject 10, 000 units under the skin every 12 hours as directed by Anticoagulation Clinic 25 mL 10/10/2023 Active Syringe/Needle (Disp) 26G X 5/8" 1 MLIndications:Histo ry of DVT (deep vein thrombosis) Heparin 36255 units twice daily 30 Each 1 10/10/2023 Active Plus 27-1 MG Oral Tablet 03/14/2023 Active documented as of this encounter (statuses as of 10/26/2023) Active Problems Problem Noted Date Diagnosed Date [facility] 09/22/2023 Iron deficiency anemia 05/19/2023 APL (antiphospholipid syndrome) 11/19/2020 History of DVT (deep vein thrombosis) 02/13/2020 History of pulmonary embolism 02/13/2020 HTN, goal below 140/90 02/13/2020 Psychophysiological insomnia 10/26/2015 Panic disorder 03/05/2009 Overview: 02/13 prozac- self d/c. Menstruation, irregular 10/24/2005 Overview: On OCP Estimated Date of Delivery Comme nts Yes 11/06/2023 documented as of this encounter (statuses as of 10/26/2023) Resolved Problems Problem Noted Date Diagnosed Date Resolved Date SOB (shortness of breath) 05/25/2020 Asthma with severity to be determined 07/25/2019 10/13/2020 Overview: In Check dial performed to assess inhaler technique: 07/25/19 Name of inhaler (s) Proair Pass: yes at 60L/min Name of inhaler (s) Breo Pass: yes at 55L/min Test performed by Brandy Van LPN 07/25/2019 10:22 AM Pap smear of vagina with ASC-US 07/23/2008 12/10/2019 Overview: High risk hpv. Pt opted repeat pap 1 year--normal 08/15 Calculus of ureter 09/17/2007 3 Overview: 2 mm distal ureteric calculi on left. Multiple minute non-obstructing calculi in rigth. To see Urology Adolescent acne/irregular menses 06/19/2003 10/24/2005 Simple chronic serous otitis media 10/24/2005 Overview: ICD-10 update of inactive term Chronic sinusitis 10/24/2005 documented as of this encounter (statuses as of 10/26/2023) Immunizations Name Administration Dates Next Due COVID-19 mRNA, LNP-s, No Pre serve, 2-Dose Series ([employer] 07/09/2020,06/18/2020 DTP Vaccine 03/31/1992, 8,1987,07/01 H1N1 2009 Influenza, IM 03/08/2009 HPV Vaccine, 4-Valent 07/11/2008,02/29/2008,12/06 Meningococcal Conjugate Vacc ine (Menactra/Menveo) 10/24/2005 PPD 12/13/1994 Pneumococcal Conjugate Vacci ne, 20-valent ([id number]) 11/02/2022 Pneumococcal Polysaccharide PPV23 (Pneumovax) 12/02/2019 Seasonal Influenza Virus Vac cine, Unspecified Formulation 02/14/2021 Seasonal Influenza, PF, 6 M & above, IM , (FluLaval or Fluzone) 02/22/2023,03/02/2022,01/27/2020 Seasonal Influenza, Quadriva lent,with Preserve, 3 yr & above, IM 02/29/2008 Seasonal Influenza, Split, I IV3, With Preserve, Inj 02/26/2019,03/05/2013,02/29/2008 TDAP (age 10 and older)(Boostrix) 05/06/2021,07/2020,03/07/2009 TDAP, Age 7 and older, IM (Adacel) 03/07/2009 Varicella Vaccine (Chicken Pox) 12/02/19 20(Deferred: Had Clinical Disease) documented as of this encounter Social History Tobacco Use Types Packs/Day Years Used Date Smoking Tobacco: Never Smokeless Tobacco: Never Alcohol Use Standard Drinks/Week Comments No 0 (1 standard drink = 0.6 oz pur e alcohol) PHQ-2 Answer Date Recorded PHQ Adult Total Score 0 04/20/2022 Hunger Vital Sign Answer Date Recorded Within the past 12 months, y ou worried that your food would run out before you got the money to buy more. Never true 08/13/19 23 Within the past 12 months, t he food you bought just didn't last and you didn't have money to get more. Never true 08/12/2022 Utilities Answer Date Recorded Do you have trouble paying y our heating, water, or electric bill? (Adult - for ages 18 years and over) Not on file 10/24/2023 Is your family able to pay t he heat, water, or electric bill? (Household - for ages 0-17 years) Not on file 10/24/2023 Does your family have access to good internet? (Household - for ages 0-17 years) Not on file 10/24/2023 Social Connections Answer Date Recorded How often do you feel lonely or isolated from those around you? (Adult - for ages 18 years and over) Not on file 10/24/2023 Estimated Date of Delivery Comme nts Yes 11/06/2023 Sex and Gender Information Value Date Recorded Sex Assigned at Female 04/20/2022 10:24 AM EST Gender Identity Female 04/20/2022 10:24 AM EST Sexual Orientation Straight 04/20/2022 10 :24 AM EST Job Start Date Occupation Industry Not on file Not on file Not on file documented as of this encounter Progress Notes * Kyra Olivas RPh - 10/26/2023 4:47 PM EDT 10/26/2023 04:47 PM EDT by Kyra Olivas RPh Outgoing Trinidad Montalvo (Self) Remove Left Message Called to confirm pt stopped Heparin after AM injection today for anticipated delivery tomorrow. [facility] will follow up at discharge. Advised to call back with any changes or concerns. Kyra Olivas Rph, Pharm.D. Clinical Pharmacist [facility] ([facility]) [phone] 10/26/2023,4:49 PM documented in this encounter Plan of Treatment Upcoming Encounters Date Type Department Care Team (Late st Contact Info) Description 10/30/2023 6:45 AM EDT Anticoagulation Centralized Clinical Pharmacy Services, Katie Zacarias [address] [place] [address] [place] [address] [facility], [place] [address] [address] [facility] [place] [phone] 11/02/2023 11:10 AM EDT Laboratory Laboratory, [address] [phone] [facility], Lab [address] [place] [id number] 11/03/2023 4:00 PM EDT Telemedicine Hematology/Oncology, [facility] [address] [place] [address] Alen Mccullough MD [address] [place] [address] 11/06/2023 8:00 AM EDT [facility] [place] [address] [facility] [phone] Danette [facility]-C [address] [facility] [address] 10/30/2024 7:40 AM EDT Office Visit Dermatology, Nell Cat [place] [address] [place] [address] Annamaria Mcdonald PA-C [address] [place] [address] Scheduled Procedures Name Priority Associated Diagnoses Date/Ti me COLONOSCOPY FLEXIBLE PROXIMA L DIAGNOSTIC Recall Screening for colon cancer Health Maintenance Due Date Last Done Comments COVID-19 Vaccine (2022- season) 2023 07/09/2020, 06/18/2020 Depression Screening 04/20/2023 04/20/2022 TSH 06/23/2023 06/23/2022, 06/08, 05/21/2021, Additional history exists PAP SMEAR-ANNUAL AGES 18-100 10/05/2023 10/04/2022, 10/17/2013, 09/05/2012, Additional history exists GFR 04/19/2024 04/19/2023, 09/2022, 10/19/2021, Additional history exists Diabetes Screening 04/19/2026 04/19/2023, 0 05/12/2022, 10/19/2021, Additional history exists DTaP,Tdap,and Td Vaccines (9 - Td or Tdap) 05/06/2031 05/06/2021, 09/07/2020, 03/07/2009, Additional history exists Colonoscopy 10/27/2032 10/27/2022, 10/27/2022 Hepatitis B Completed 05/06/1998, 11/05, 10/17/1997 MENINGOCOCCAL (MENACTRA/MENVEO) Completed 10/24/2005 GARDASIL-HPV IMMUNIZATION SERIES Completed 07/11/2008, 02/29/2008, 12/21/2007 RETIRED - COLONOSCOPY EVERY 10 YEARS,AGES 18-50 Discontinued 10/27/2022, 10/27/2022 Pneumococcal Vaccine: Pediatrics (0 to 5 Years) and At-Risk Patients (6 to 64 Years) Aged Out 11/02/2022, 12/02/2019 No longer eligibl e based on patient's age to complete this topic Albumin/Creatinine Ratio Discontinued 12/23/2022 Influenza Vaccine (FLU shot) Completed 02/22/2023, 03/02/2022, 02/14/2021, Additional history exists documented as of this encounter Medical Devices Not on filedocumented as of this encounter Visit Diagnoses Diagnosis History of pulmonary embolism- Primary Personal history of pulmonary embolism APL (antiphospholipid syndrome) (HCC) Primary hypercoagulable state History of DVT (deep vein thrombosis) Personal history of venous thrombosis and embolism and not yet delivered in third trimester documented in this encounter Advance Directives * Full Code (Latest Code Status on File) Date Activated Date Inactivated Comments 09/28/2020 2:44 PM 09/28/2020 7:59 PM This order r eflects the patients wishes and were consensually agreed upon. Question Answer Comments Discussion of Advance Directives occurred with: Not Discussed Does the patient have a Living Will? No Does the patient have Health Care Power of Attor ama? No * Full Code Date Activated Date Inactivated Comments 09/28/2020 1:54 PM 09/28/2020 2:44 PM This order r eflects the patients wishes and were consensually agreed upon. Question Answer Comments Discussion of Advance Directives occurred with: Not Discussed Does the patient have a Living Will? No Does the patient have Health Care Power of Attor ama? No * Full Code Date Activated Date Inactivated Comments 09/21/2020 9:14 AM 09/21/2020 2:38 PM This order r eflects the patients wishes and were consensually agreed upon. Question Answer Comments Discussion of Advance Directives occurred with: Not Discussed Does the patient have a Living Will? No Does the patient have Health Care Power of Attor ama? No Care Teams Chief Steward/Stewardess Relationship Specialty Start Date End Date Danette Zhang PA-C [address] [place] [phone] PCP - General Physician Telecommunications Line Installer 10/20/22 documented as of this encounter
[2023-10-27] MEDS ORDERED: ALBUTEROL HFA 8 GM INHALER INH PRN (10:43)
[2023-10-27] MEDS ORDERED: MAGNESIUM HYDROXIDE SUSP 30 ML UDC PO PRN (10:43)
[2023-10-27] MEDS ORDERED: SENNA 8.6 MG TAB PO PRN (10:43)
[2023-10-27] MEDS ORDERED: PROMETHAZINE HCL 25 MG in SODIUM CHLORIDE 0.9% 50 ML IV PRN (10:43)
[2023-10-27] MEDS ORDERED: HYDROCORTISONE ACETATE 25 MG SUPP PR PRN (10:43)
[2023-10-27] MEDS ORDERED: diphenhydrAMINE Capsule 25 MG CAP PO PRN (10:43)
[2023-10-27] MEDS ORDERED: LACTATED RINGER'S 1,000 ML IV SCH (10:43)
[2023-10-27] MEDS ORDERED: BENZOCAINE 20% SPRY 85 APPLN/85 GM CAN EXT PRN (10:43)
[2023-10-27] MEDS ORDERED: diphenhydrAMINE 50 MG/ML VIAL IV PRN (10:43)
[2023-10-27] MEDS: CARBOPROST TROMETHAMINE 250 MCG/ML AMPUL ONE (11:00)
[2023-10-27] MEDS: miSOPROStoL 200 MCG TAB ONE (11:00)
[2023-10-27] MEDS: DIPHTHER/TETAN/PERTUS Vaccine (Tdap, Adol/Adult) 0.5mL IM ONE (11:01)
[2023-10-27] MEDS: MoRPHine SULFATE PF 1 MG/ML 10 ML AMP/VIAL INT SPINAL ONE (11:01)
[2023-10-27] MEDS: OXYTOCIN 10 UNITS/ML VIAL ONE (11:01)
[2023-10-27] MEDS: SODIUM CHLORIDE 0.9% 1,000 ML IV SCH (11:01)
[2023-10-27 11:05] LABS: Base Excess Cord Venous Blood -2.2 mEq/L (-7.7-1.9); Cord Venous Blood HCO3 22 mmol/L (18.4-26.8); Cord Venous Blood PCO2 37 mmHg (30.4-57.2); Cord Venous Blood PO2 29 mmHg (14.1-43.3); Cord Venous Blood pH 7.39 (7.20-7.44); O2 Saturation Cord Venous Bld 68.2 % (<68)
--- NOTE | 2023-10-27 11:05 | Anesthesiology Progress Note ---
Date of Service October 27, 2023 Anesthesia Post Procedure Vital Signs Vital Signs: Temp Pulse Resp BP Pulse Ox 10/27/23 11:03 71 100 10/27/23 10:58 82 100 10/27/23 10:54 75 119/57 L 10/27/23 10:53 85 99 10/27/23 10:48 82 100 10/27/23 10:44 10/27/23 10:44 78 117/56 L 10/27/23 10:43 73 100 10/27/23 10:38 84 100 10/27/23 10:34 10/27/23 10:34 77 117/61 10/27/23 10:33 90 100 10/27/23 10:28 78 100 10/27/23 10:23 80 100 10/27/23 10:22 36.4 C L 10/27/23 10:22 71 112/63 10/27/23 08:25 77 132/60 10/27/23 07:21 36.6 C 10/27/23 07:17 74 136/65 10/27/23 05:45 36.6 C 10/27/23 05:42 73 129/59 L Pain Intensity Bilateral Abdomen: Pain Intensity: 0 Transfer of Care Handoff Completed per policy Notes Mental Status: alert / awake / arousable and participated in evaluation Patient Amnestic to Procedure: Yes Nausea / Vomiting: adequately controlled Pain: adequately controlled Airway Patency, RR, SpO2: stable & adequate BP & HR: stable & adequate Hydration State: stable & adequate Anesthetic Complications: no major complications apparent
[2023-10-27 11:06] LABS: Base Excess Cord Arterial Bld -1.1 mEq/L (-9-1.8); CO2 Cord Arterial Blood 53 mmHg (39.1-73.5); HCO3 Cord Arterial Blood 26 mmol/L (19.7-28.5); Oxygen Sat Cord Arterial Blood < 60.0 % (<60); PO2 Cord Arterial Blood < 20 mmHg (4.1-31.7)
[2023-10-27] MEDS: diphenhydrAMINE 50 MG/ML VIAL IV PRN (11:07)
--- NOTE | 2023-10-27 11:08 | Anesthesiology Progress Note ---
Date of Service October 27, 2023 Anesthesia Post Procedure Vital Signs Vital Signs: Temp Pulse Resp BP Pulse Ox 10/27/23 11:04 70 119/61 10/27/23 11:03 71 100 10/27/23 10:58 82 100 10/27/23 10:54 10/27/23 10:54 75 119/57 L 10/27/23 10:53 85 99 10/27/23 10:48 82 100 10/27/23 10:44 10/27/23 10:44 78 117/56 L 10/27/23 10:43 73 100 10/27/23 10:38 84 100 10/27/23 10:34 10/27/23 10:34 77 117/61 10/27/23 10:33 90 100 10/27/23 10:28 78 100 10/27/23 10:23 80 100 10/27/23 10:22 36.4 C L 10/27/23 10:22 71 112/63 10/27/23 08:25 77 132/60 10/27/23 07:21 36.6 C 10/27/23 07:17 74 136/65 10/27/23 05:45 36.6 C 10/27/23 05:42 73 129/59 L Pain Intensity Bilateral Abdomen: Pain Intensity: 0 Transfer of Care Handoff Completed per policy Notes Mental Status: alert / awake / arousable and participated in evaluation Nausea / Vomiting: adequately controlled Pain: adequately controlled Airway Patency, RR, SpO2: stable & adequate BP & HR: stable & adequate Hydration State: stable & adequate Neuraxial Anesthesia: was administered and sensory block is resolving Anesthetic Complications: no major complications apparent and Pt Satisfied with anesthetic care
[2023-10-27] MEDS: OXYTOCIN 30 UNITS/LR 1,003 ML IV SCH (11:22)
--- NOTE | 2023-10-27 11:32 | Operative Report ---
Post Operative Report Pre & Post Diagnosis Operation Date: 10/27/23 07:30 Pre-Op Diagnosis: History of Desires permament sterilization and repeat Post-Op Diagnosis: same I identified the patient and participated in the time-out.: Yes Procedure Operation Date: 10/27/23 07:30 Actual Procedures Repeat Low Transverse Section for live male at 0928 - Ritu Wyatt DO s With Bilateral Tubal Ligation - Ritu Wyatt DO Surgeon Ritu Wyatt DO Strategic Accounts Manager Sisi Gleason Quantitative Blood Loss (QBL) 600 Findings Consistent with Post-Op Diagnosis Viable male , please see nursery records for Weight and Apgars. Specimens cord blood, cord gas, bilateral fallopian tubes Drains alex clear yellow Anesthesia Type Spinal Complications none Disposition Accompanied Patient To Recovery: Yes Disposition: Recovery Room Indications 38yo @ 38 08/12, repeat section with desire for tubal sterilization, cHTN, h/o pulmonary embolism Description of Procedure The patient was seen in her labor and delivery room, risks benefits and alternatives to surgery were reviewed. Informed consent obtained. Questions were answered. She was taken to the operating room, spinal anesthesia was administered. She w as then prepared and draped in the usual sterile fashion in the supine position with a leftward tilt. Timeout was confirmed. A Pfannenstiel skin incision was made with a scalpel, and carried through to the underlying layer of fascia. Fascia was nicked at midline, and this incision was extended bilaterally. The superior aspect of the fascial incision was grasped with Christine clamps x2, elevated off the underlying rectus abdominis muscles, and dissected sharply and bluntly. In similar fashion, the inferior aspect of the fascial incision was dissected. The rectus abdominis muscles were , and the peritoneum was entered bluntly digitally. This was extended bilaterally. The bladder flap was taken down carefully using Metzenbaum scissors. Using a new scalpel, a low transverse uterine incision was created. Clear amniotic fluid noted. The was delivered from a cephalic presentation. The head delivered, followed by shoulders and body. Spontaneous cry on the field. The cord was doubly clamped and cut, and the was handed off to the waiting hematology supervisor. A segment was retained for cord gases. Cord blood was obtained. The placenta was delivered spontaneously intact. The uterus was exteriorized, and cleared of all clots and debris. The hysterotomy incision was reapproximated using 0 Vicryl in a running locked stitch. A second layer of the same suture was used to imbricate the incision. Posterior uterus was evaluated and normal. Tubal sterilization was performed, right fallopian tube was grasped with [place] clamp and transected from mesosalpinx and from uterus with Ligasure device, followed by right fallopian tube in similar fashion. These were passed off. The uterus was returned to the abdomen, and gutters were cleared of clots and debris. Excellent hemostasis was observed. The fascial incision was reapproximated using 0 Vicryl in a running stitch. The subcutaneous tissue was irrigated, and reapproximated using 2-0 plain gut in a running stitch. The skin was reapproximated using 4-0 Vicryl in a running subcuticular stitch. Steri-Strips and a bandage were applied. The patient tolerated the procedure well, and will be taken to the recovery area in stable and good condition. I attest to the content of the Intraoperative Record and any orders documented therein. Any exceptions are noted below. OB Procedure Charges [id number] Add on Tubal for C/S
[2023-10-27] MEDS: SIMETHICONE 80 MG CHEW PO SCH (12:56)
[2023-10-27] MEDS: NALBUPHINE HCL 5 MG in SYRINGE 0 ML IV PRN (14:06)
[2023-10-27] MEDS: LABETALOL HCL 100 MG TAB PO SCH (20:12)
[2023-10-27] MEDS: PRENATAL VITAMIN 1 TAB PO SCH (20:13)
[2023-10-27] MEDS: DOCUSATE SODIUM 100 MG CAP PO SCH (20:13)
[2023-10-27] MEDS: HEPARIN SOD 5,000 UNIT/0.5 ML VIAL SQ SCH (21:47)
[2023-10-28] MEDS ORDERED: oxyCODONE/ACETAMINOPHEN 5mg/325mg TAB PO PRN (01:58)
[2023-10-28 06:34] LABS: Basophils # (auto) 0.06 K/uL (0.00-0.20); Basophils % (auto) 0.4 %; Eosinophils # (auto) 0.28 K/uL (0.00-0.50); Eosinophils % (auto) 1.8 %; Hematocrit (blood only) 35.2 % (37.0-47.0); Immature Granulocytes % (auto) 0.6 %; Lymphocytes # (auto) 2.05 K/uL (1.20-3.40); Lymphocytes % (auto) 13.1 %; Mean Corpuscular Hgb Conc 34.1 g/dL (32.0-36.0); Mean Platelet Volume 10.4 fL (9.4-12.4); Monocytes # (auto) 1.09 K/uL (0.11-0.59); Neutrophils # (auto) 12.04 K/uL (1.40-6.50); Neutrophils % (auto) 77.1 %; Platelet Count 210 K/uL (130-400); RDW Coefficient of Variation 13.6 % (11.5-14.5); RDW Standard Deviation 43.7 fL (36.4-46.3); White Blood Count 15.62 K/ul (4.8-10.8)
[2023-10-28] MEDS: ACETAMINOPHEN 325 MG TAB PO PRN (06:44)
--- NOTE | 2023-10-28 06:45 | Obstetrical Progress Note ---
Date of Service <Cornel Mujica DO - Last Filed: 10/28/23 06:45> October 28, 2023 Assessment & Plan <Cornel Mujica DO - Last Filed: 10/28/23 06:45> (1) Encounter for assessment: Plan 38 y/o POD#1: Voiding well, ambulating well, tolerating clear liquids with plan to advance diet this morning. Vitals reviewed, WNL Pain well controlled without analgesics Routine post-op care - OOB, ambulation, diet progression as tolerated Will have 6 week follow up with Dr. Wyatt <Ritu Wyatt, - Last Filed: 10/28/23 07:50> (1) Encounter for assessment: Subjective <Cornel Mujica DO - Last Filed: 10/28/23 06:45> Ambulation: ambulating normally Voiding: no voiding problems Passing Gas:: Yes Diet Tolerance:: clear liquids Lochia:: Small Feeding Type:: bottle feeding pain adequately controlled without analgesics. Review of Systems -Denies fever or chills -Denies dyspnea, chest pain, or palpitations -Denies dysuria -Denies headache or changes in vision Physical Exam <Cornel Mujica DO - Last Filed: 10/28/23 06:45> General: Alert and oriented. No acute distress Cardiac: Regular rate and rhythm, no murmurs appreciated Respiratory: Lungs clear to auscultation bilaterally, No increased work of breathing Abdominal: Soft, non-tender, non-distended. Bowel sounds present. Uterus: Uterine fundus firm, palpable below umbilicus. Incision site clean, dry, intact. Extremities: Bilateral SCDs in place. Results & Data <Cornel Mujica DO - Last Filed: 10/28/23 06:45> Vital Signs (Past 12 Hours) Vital Signs Temp Pulse Resp BP Pulse Ox O2 Del Method 10/28/23 05:00 37.0 C 90 18 117/76 98 Room Air 10/28/23 01:00 16 98 10/28/23 00:00 16 97 10/27/23 23:30 36.9 C 77 16 104/61 96 Room Air 10/27/23 23:00 16 98 10/27/23 22:00 16 97 10/27/23 21:00 16 98 10/27/23 20:00 16 96 10/27/23 19:45 36.7 C 78 16 110/69 97 Room Air 10/27/23 19:00 16 97 Supervising Physician <Ritu Wyatt DO - Last Filed: 10/28/23 07:50> Co-Signing Physician Notes Resident Physician Supervision Note: I interviewed and examined the patient. Discussed with Dr. Mujica and agree with findings and plan as documented in the note. Any exceptions or clarifications are listed here: POD 1 - doing well, incision CDI. Had depression last , did not treat, would like to start something now for this and plans to followup with PCP in 2w with previously scheduled appointment. Rx Zoloft 25mg QD, can increase to 50mg QD if feels needed. Continue Heparin 10k units BID. She has appointment with novelties sales representative next week, and has been instructed to continue Heparin until that time. She has 2 doses at home, and has been in touch with [facility] pharmacy for more to get her to the hematology appointment. Documented By: Ritu Wyatt DO Resident Activity Tracking <Cornel Mujica DO - Last Filed: 10/28/23 06:45> Resident Involvement: Resident Care Provided Care Provided: OB Delivery
[2023-10-28] MEDS: FERROUS SULFATE 325 MG TAB PO SCH (09:01)
[2023-10-28] MEDS: SERTRALINE HCL 50 MG TABLET PO ONE (09:03)
[2023-10-28] MEDS: LEVOTHYROXINE SODIUM 75 MCG TABLET PO SCH (09:03)
[2023-10-28] MEDS: PANTOprazole 40 MG TAB PO SCH (09:47)
[2023-10-28] MEDS: bisacodyL 5 MG TABEC PO SCH (20:06)
[2023-10-29 06:35] LABS: Hematocrit (blood only) 36.4 % (37.0-47.0); Hemoglobin 12.2 g/dl (12.0-16.0)
--- NOTE | 2023-10-29 07:41 | Obstetrical Progress Note ---
Date of Service October 29, 2023 Assessment & Plan (1) care and examination: Plan stable and desires dc home, bottle, rhpos, ri, instructions reviewed and given. following with hematology for anticoag. will start zoloft. plan f/u 6wks. she will also be sent percocet in case. hgb 12.2 Day #:: 2 Subjective Ambulation: ambulating normally Voiding: no voiding problems Passing Gas:: Yes Diet Tolerance:: regular diet Lochia:: Small Feeding Type:: bottle feeding no pain issues. has not used percocet. checked on papdmp and no issues. Constitutional: + as per Subjective / HPI Physical Exam Constitutional WD/WN, vitals as above Respiratory normal respiratory effort, lungs clear to auscultation Cardiovascular Rate/Rhythm: regular rate and regular rhythm Gastrointestinal (Abdomen) Inspection/Auscultation: abdomen normal to inspection and + abdominal surgical incision (c/d/i with steris) Percussion/Palpation: abdomen soft Fundus firm 2cm down Musculoskeletal nt calves no edema Neurologic grossly normal Psychiatric A+Ox3, euthymic affect Results & Data Vital Signs (Past 12 Hours) Vital Signs Temp Pulse Resp BP Pulse Ox O2 Del Method 10/29/23 03:11 98.1 F 76 18 135/72 98 Room Air 10/28/23 20:12 97.9 F 82 18 138/84 96 Room Air 10/28/23 20:05 Room Air
[2023-10-29] MEDS ORDERED: bisacodyL 10 MG SUPP PR PRN (10:15)
--- NOTE | 2023-11-02 05:06 | Discharge Summary ---
Date of Service November 02, 2023 Admission HPI Per Admitting Provider 38yo wtih EDC 11/06/23 scheduled for repeat section. and Delivery Plans History of Blood clots Pulmonary Embolus *Lovenox daily managed by [facility] [facility] *anemia and has been given iv iron via hematology as well *planned transition to heparin at 36 weeks. CHTN on Meds *Baby ASA daily start 12-28 wks, continue until delivery *wkly NST's @32wks and twice wkly @36 wks *Serial Growth US @ 24 (doppler only if abnml) *Baseline 24hr urine (additioinal PRN) 166.4 *weekly RAE's @ 32wk(If on Meds) *Deliver [id number] (If on Meds) GDM in prior *Begin monthly Growth US's @24wks AMA *Weekly NST's @ 36wks GBS in urine *treat in labor Previous c/s--desires repeat C/S WITH TUBAL SCHEDULED FOR 10/27/[address] RITU WYATT Polyhydramnios--8.3cm on 09/27 *Weekly NSTs if fluid 12 or greater *Weekly AFIs @ Dx *If pocket >16 refer to M *Deliver between [id number] Admission Exam (Per Admitting) Constitutional WD/WN, vitals as above Respiratory normal respiratory effort, lungs clear to auscultation no respiratory distress Cardiovascular Rate/Rhythm: regular rate and regular rhythm Gastrointestinal (Abdomen) Inspection/Auscultation: abdomen normal to inspection Percussion/Palpation: abdomen soft; abdomen nontender Skin no rashes, warm and dry Psychiatric A+Ox3, euthymic affect Discharge Data Consultations 10/27/23 05:31 Consult Anesthesiology Stat Procedures Performed Operation Date: 10/27/23 07:30 Actual Procedures s With Bilateral Tubal Ligation - Ritu Wyatt DO p Section for live male infant at 0928 - Ritu Wyatt DO Hospital Course (1) care and examination: Plan stable and desires dc home, bottle, rhpos, ri, instructions reviewed and given. following with hematology for anticoag. will start zoloft. plan f/u 6wks. she will also be sent percocet in case. hgb 12.2 Supervising Physician Co-Signing Physician Notes Resident Physician Supervision Note: I interviewed and examined the patient. Discussed with Dr. Mujica and agree with findings and plan as documented in the note. Any exceptions or clarifications are listed here: POD 1 - doing well, incision CDI. Had depression last , did not treat, would like to start something now for this and plans to followup with PCP in 2w with previously scheduled appointment. Rx Zoloft 25mg QD, can increase to 50mg QD if feels needed. Continue Heparin 10k units BID. 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 She has 2 doses at home, and has been in touch with [facility] pharmacy for more to get her to the hematology appointment. Documented By: Ritu Wyatt DO Coding Level of Care Code None Diagnoses care and examination Z39.2
== END 2023-10-29 11:16 | disposition home or self-care (01) | DRG 784 ==
LOC: 4S1 05:30 → EDSTATUS 07:30 → 4E2 13:08
PROC: M.PPTLD (2023-10-27 07:30)
DX: Z3A.38 38 weeks gestation of pregnancy; O10.02 Pre-existing essential hypertension complicating childbirth; O40.3XX0 Polyhydramnios, third trimester, not applicable or unspecified; Z86.711 Personal history of pulmonary embolism; Z86.32 Personal history of gestational diabetes; Z79.51 Long term (current) use of inhaled steroids; Z79.899 Other long term (current) drug therapy; B95.1 Streptococcus, group B, as the cause of diseases classified elsewhere; Z79.890 Hormone replacement therapy; Z86.718 Personal history of other venous thrombosis and embolism; O98.82 Other maternal infectious and parasitic diseases complicating childbirth; Z37.0 Single live birth; O34.211 Maternal care for low transverse scar from previous cesarean delivery